=== PATIENT | female | born 1980 | race Caucasian/White ===

== ENCOUNTER 2018-03-08 18:16 | Outpatient (REF) | payer BC, SELFPAY ==
[2018-03-11 15:22] LABS: Chlamydia Result Negative; GC Result Negative; Specimen Description CERVIX
== END 2018-03-08 18:36 ==
LOC: LBN 18:16
PROVIDERS: PCP Nurse Practitioner; Visit Provider Nurse Practitioner Women's Health
DX: Z11.3 Encounter for screening for infections with a predominantly sexual mode of transmission (principal)
CPT/HCPCS: 87491; 87591

== ENCOUNTER 2018-06-03 09:12 | Outpatient (REF) | payer BC, SELFPAY ==
--- NOTE | 2018-06-03 08:45 | PAPFT_PTH ---
PATIENT: Amelia Antunez LOC: [facility] U#:[id number] AGE/SX: 38/F ROOM: RE06/03/[address]: ALEXANDREA Blanchard : 1980 BED: DIS: 06/03/2018 SPEC #: [id number] RECD: 06/03/18 12:54 STATUS: ASHLEY RECheli #: [id number] [place]: 06/03/18 08:[address]: Beatrice Kumra DEPT: [facility] Cytology RECD BY: Valeria Mancia ENTERED: 06/03/18 12:54 SP TYPE: PAPFT TOSHIA DR: Helena Benítez APRN Tissues: 1 - CX/ENDOCX FOR PAP SMEARS Procedures: PAP THIN PREP/UVM Screening HPV DNA PROBE Comments: [id number]
== END 2018-06-03 09:32 ==
LOC: LBN 09:12
PROVIDERS: PCP Nurse Practitioner; Visit Provider Nurse Practitioner Family
DX: Z12.4 Encounter for screening for malignant neoplasm of cervix (principal); Z11.51 Encounter for screening for human papillomavirus (HPV)
CPT/HCPCS: 88142; 87624

== ENCOUNTER 2018-06-06 11:51 | Outpatient (REF) | payer BC, SELFPAY | END 2018-06-06 12:11 | LOC: LBN 11:51 | PROVIDERS: PCP Nurse Practitioner; Visit Provider Nurse Practitioner | DX: B34.9 Viral infection, unspecified (principal) | CPT/HCPCS: 87449 ==

== ENCOUNTER 2018-09-14 11:19 | Emergency (ER) | payer BC, SELFPAY ==
[2018-09-14 11:40] VITALS: BP 122/78; PULSE 69; RESP 16; TEMP 36.7; O2SAT 98
--- NOTE | 2018-09-14 11:48 | W.ED.GENAD ---
Discharge Plan Disposition Patient Disposition: HOME Condition: Stable Discharge Details Chief Complaint: PsychEval Clinical Impression: Depression Primary Care Provider: Helena Benítez ED Provider: Pankaj Millard Home Meds and New Rx's Prescriptions: No Action Dexilant 60 mg capsule,biphase delayed releas 60 mg PO DAILY Qty: 90 RF: 3 rizatriptan [Maxalt] 10 mg tablet 10 mg PO ONCE Qty: 10 RF: 3 sertraline 20 mg/mL concentrate 100 mg PO DAILY Qty: 150 RF: 12 levothyroxine 200 mcg/mL solution 200 mcg PO DAILY Qty: 30 RF: 12 sucralfate 100 mg/mL suspension 10 ml PO QID Qty: 420 RF: 4 valacyclovir [Valtrex] 500 mg tablet See Patient Comments PO .COMPLEX RF: 0 Discharge Instructions Instructions: Depression (ED) Additional Instructions: take your medications as prescribed, you should follow up with your primary care provider and have your thyroid function studies retested once you are taking your levothyroxine every day if you feel your symptoms are worsening call [facility] or return to the emergency department Medical Decision Making 38 yo female with hx of depression, hypothyroidism, who comes in with chief complaint of si. She states her symptoms have increased significantly over the past 2 days, states her daughter recently tried to harm herself and yesterday the pt spanked her son and a teacher at school called [employer] which made her feel hopeless. This morning her found her with scissors and she was going to cut her wrist so he brought her here. She denies any ingestants to try and harm herself. She has no focal neuro deficits, no fevers, no neck stiffness, no findings to suggest underlying patient coordinator front desk infectino or endocrine abnormalities, will have mental health evaluate, medically cleared pt's tsh and free t 4 both low, states she hasn't been taking her levothyroxine for 2 weeks or so. Will give her a dose while she is here of her levothyroxine. Mental health eval pending mental health evaluated and will be d/c'd with outpatient f/u, patient and are in agreement with this plan and feel safe with this plan. She now denies si on my repeat exam. Advised f/u with pcp with regards to her treatment of her hypothyroidism and stressed importance of taking meds as prescribed Differential Diagnosis depression, si, hypothyroidism Lab Data Lab results reviewed: Yes I reviewed the patient's lab results. HPI General Mode of arrival: ambulatory. Date/Time Provider Initiated Documentation: 09/14/18 11:30. Limitations to Documentation: no limitations. Information obtained by: patient. History of Present Illness 38 year old F presents to the emergency department with the chief complaint of depressed, described as severe, Patient started experiencing this day(s) (2) and it has been constant. No relieving factors improve symptom(s), Patient did receive the following treatments prior to arrival, none Related Data Home Medications Medication Instructions Recorded Confirmed dexlansoprazole 60 mg 60 mg PO DAILY #90 cap 04/10/18 09/14/18 capsule,biphase delayed release rizatriptan 10 mg tablet 10 mg PO ONCE #10 tab 04/10/18 09/14/18 valacyclovir 500 mg tablet See Rx Instructions PO .COMPLEX 04/15/18 09/14/18 tab sucralfate 100 mg/mL oral 10 ml PO QID #420 ml 06/26/18 09/14/18 suspension levothyroxine 200 mcg/mL oral 200 mcg PO DAILY #30 ml 08/07/18 09/14/18 solution sertraline 20 mg/mL oral 100 mg PO DAILY #150 ml 08/07/18 09/14/18 concentrate Previous Rx's Medication Instructions Recorded dexlansoprazole 60 mg 60 mg PO DAILY #90 cap 04/10/18 capsule,biphase delayed release rizatriptan 10 mg tablet 10 mg PO ONCE #10 tab 04/10/18 sucralfate 100 mg/mL oral 10 ml PO QID #420 ml 06/26/18 suspension levothyroxine 200 mcg/mL oral 200 mcg PO DAILY #30 ml 08/07/18 solution sertraline 20 mg/mL oral 100 mg PO DAILY #150 ml 08/07/18 concentrate Allergies Allergy/AdvReac Type Severity Reaction Status Date / Time clindamycin Allergy Severe Body rash, Verified 09/14/18 11:43 intensence itching sumatriptan [From Imitrex] AdvReac Severe Psychosis Verified 09/14/18 11:43 codeine AdvReac Intermediate GI Verified 09/14/18 11:43 pain/distress General Stated Complaint: PsychEval TOBI: 2 Review of Systems Review of Systems All systems reviewed & are unremarkable except as noted in HPI and below Constitutional Denies chills, Denies fever(s) and Denies weakness Cardiovascular Denies chest pain and Denies dyspnea Respiratory Denies cough and Denies dyspnea Gastrointestinal Denies abdominal pain, Denies nausea and Denies vomiting Genitourinary Denies dysuria Musculoskeletal Denies joint swelling Integumentary/Breasts Denies rash Neurologic Denies weakness [facility] Medical History Depression Hypothyroidism Abdominal migraine, not intractable (Acute) Chronic tension-type headache, not intractable (Acute) Squamous cell carcinoma of lip (Acute) HSV (herpes simplex virus) infection (Chronic) Gastroesophageal reflux disease without esophagitis (Acute 05/03/17) Surgical History Bariatric surgery status (Chronic) History of tonsillectomy (Chronic) Cholecystectomy Gastric Bypass (05/25/14) Family History Mother Essential hypertension Asthma Depression COPD (chronic obstructive pulmonary disease) Father Essential hypertension Social History Smoking/Tobacco Use Status: Never Alcohol Intake: current Alcohol Intake frequency: 0-2 drinks per day Substance use type: does not use Adopted: No Foster care: No Household members: spouse and children Number of Children: 3 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 Pets and animals: Yes Pets and animals: cat(s) and dog(s) What type of physical activity do you participate in: walking and irregular exercise Seatbelt use: always Helmet use: No (NA) Drive intox or ride w/intox restaurant delivery 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: No Water heater temp set <120 deg: Yes Working smoke detector in home: Yes Fire extinguisher in home: Yes Carbon monox detector in home: No Do you feel safe in your relationship?: Yes Female Reproductive History Menstrual control method: progestin IUCD (inserted by Bao Millard NP [id number] EXP=07/2020) and condoms History History 3 Para 3 Hx # Term Pregnancies Multiple births Hx # Pregnancies Ectopic pregnancies AB induced Hx Number of Living Children AB spontaneous Exam Const General: no acute distress Orientation: alert HENMT Head: normal to inspection Ears: external ears normal General nose exam: external nose normal Mouth: moist mucous membranes Eyes General: appearance normal, both eyes and all related structures Neck Neck: normal visual inspection Resp Effort & Inspection: normal respiratory effort and able to speak in complete sentences Cardio Rate: regular rate Skin General skin exam: no rashes or lesions noted Neuro General: alert and oriented x3 Extrem General: normal to inspection Psych Appearance: grossly normal Course Vital Signs Temperature 36.7 C 09/14/18 11:40 Pulse 69 09/14/18 11:40 Respiratory Rate 16 09/14/18 11:40 Blood Pressure 122/78 09/14/18 11:40 Pulse Oximetry 98 09/14/18 11:40 Temperature 36.7 C 09/14/18 11:40 Temperature Source Skin 09/14/18 11:40 Pulse 69 09/14/18 11:40 Respiratory Rate 16 09/14/18 11:40 Respiratory Effort Non-Labored 09/14/18 11:40 Blood Pressure 122/78 09/14/18 11:40 Blood Pressure Position Sitting 09/14/18 11:40 Pulse Oximetry 98 09/14/18 11:40 Oxygen Delivery Method Room Air 09/14/18 11:40 Oxygen Flow Rate 0 09/14/18 11:40 Pain Level 0 09/14/18 11:40 Lab/Test Results Lab/Test Results: POC- Test(urine) Negative
[2018-09-14 11:49] LABS: Bilirubin Negative (Negative); Blood Trace-intact (Negative); Clarity Clear; Glucose Negative (Negative); Ketones 15 mg/dL (Negative); Leukocyte Esterase Negative (Negative); Nitrite Negative (Negative); Specific Gravity >= 1.030 (1.005-1.025); Urobilinogen 0.2 EU/dL (Up TO 0.2)
--- NOTE | 2018-09-14 11:51 | ED.GENADUL_ITS ---
Discharge Plan Disposition Patient Disposition: HOME Condition: Stable Discharge Details Chief Complaint: PsychEval Clinical Impression: Depression Primary Care Provider: Helena Benítez ED Provider: Pankaj Millard Home Meds and New Rx's Prescriptions: No Action Dexilant 60 mg capsule,biphase delayed releas 60 mg PO DAILY Qty: 90 RF: 3 rizatriptan [Maxalt] 10 mg tablet 10 mg PO ONCE Qty: 10 RF: 3 sertraline 20 mg/mL concentrate 100 mg PO DAILY Qty: 150 RF: 12 levothyroxine 200 mcg/mL solution 200 mcg PO DAILY Qty: 30 RF: 12 sucralfate 100 mg/mL suspension 10 ml PO QID Qty: 420 RF: 4 valacyclovir [Valtrex] 500 mg tablet See Patient Comments PO .COMPLEX RF: 0 Discharge Instructions Instructions: Depression (ED) Additional Instructions: take your medications as prescribed, you should follow up with your primary care provider and have your thyroid function studies retested once you are taking your levothyroxine every day if you feel your symptoms are worsening call [facility] or return to the emergency department Medical Decision Making 38 yo female with hx of depression, hypothyroidism, who comes in with chief complaint of si. She states her symptoms have increased significantly over the past 2 days, states her daughter recently tried to harm herself and yesterday the pt spanked her son and a teacher at school called [facility] which made her feel hopeless. This morning her found her with scissors and she was going to cut her wrist so he brought her here. She denies any ingestants to try and harm herself. She has no focal neuro deficits, no fevers, no neck stiffness, no findings to suggest underlying emery grinder infectino or endocrine abnormalities, will have mental health evaluate, medically cleared pt's tsh and free t 4 both low, states she hasn't been taking her levothyroxine for 2 weeks or so. Will give her a dose while she is here of her levothyroxine. Mental health eval pending mental health evaluated and will be d/c'd with outpatient f/u, patient and are in agreement with this plan and feel safe with this plan. She now denies si on my repeat exam. Advised f/u with pcp with regards to her treatment of her hypothyroidism and stressed importance of taking meds as prescribed Differential Diagnosis depression, si, hypothyroidism Lab Data Lab results reviewed: Yes I reviewed the patient's lab results. HPI General Mode of arrival: ambulatory . Date/Time Provider Initiated Documentation: 09/14/18 11:30 . Limitations to Documentation: no limitations . Information obtained by: patient . History of Present Illness 38 year old F presents to the emergency department with the chief complaint of depressed, described as severe, Patient started experiencing this day(s) (2) and it has been constant. No relieving factors improve symptom(s), Patient did receive the following treatments prior to arrival, none Related Data Home Medications Medication Instructions Recorded Confirmed dexlansoprazole 60 mg 60 mg PO DAILY #90 cap 04/10/18 09/14/18 capsule,biphase delayed release rizatriptan 10 mg tablet 10 mg PO ONCE #10 tab 04/10/18 09/14/18 valacyclovir 500 mg tablet See Rx Instructions PO .COMPLEX 04/15/18 09/14/18 tab sucralfate 100 mg/mL oral 10 ml PO QID #420 ml 06/26/18 09/14/18 suspension levothyroxine 200 mcg/mL oral 200 mcg PO DAILY #30 ml 08/07/18 09/14/18 solution sertraline 20 mg/mL oral 100 mg PO DAILY #150 ml 08/07/18 09/14/18 concentrate Previous Rx's Medication Instructions Recorded dexlansoprazole 60 mg 60 mg PO DAILY #90 cap 04/10/18 capsule,biphase delayed release rizatriptan 10 mg tablet 10 mg PO ONCE #10 tab 04/10/18 sucralfate 100 mg/mL oral 10 ml PO QID #420 ml 06/26/18 suspension levothyroxine 200 mcg/mL oral 200 mcg PO DAILY #30 ml 08/07/18 solution sertraline 20 mg/mL oral 100 mg PO DAILY #150 ml 08/07/18 concentrate Allergies Allergy/AdvReac Type Severity Reaction Status Date / Time clindamycin Allergy Severe Body rash, Verified 09/14/18 11:43 intensence itching sumatriptan [From Imitrex] AdvReac Severe Psychosis Verified 09/14/18 11:43 codeine AdvReac Intermediate GI Verified 09/14/18 11:43 pain/distress General Stated Complaint: PsychEval TOBI: 2 Review of Systems Review of Systems All systems reviewed & are unremarkable except as noted in HPI and below Constitutional Denies chills, Denies fever(s) and Denies weakness Cardiovascular Denies chest pain and Denies dyspnea Respiratory Denies cough and Denies dyspnea Gastrointestinal Denies abdominal pain, Denies nausea and Denies vomiting Genitourinary Denies dysuria Musculoskeletal Denies joint swelling Integumentary/Breasts Denies rash Neurologic Denies weakness [facility] Medical History Depression Hypothyroidism Abdominal migraine, not intractable (Acute) Chronic tension-type headache, not intractable (Acute) Squamous cell carcinoma of lip (Acute) HSV (herpes simplex virus) infection (Chronic) Gastroesophageal reflux disease without esophagitis (Acute 05/03/17) Surgical History Bariatric surgery status (Chronic) History of tonsillectomy (Chronic) Cholecystectomy Gastric Bypass (05/25/14) Family History Mother Essential hypertension Asthma Depression COPD (chronic obstructive pulmonary disease) Father Essential hypertension Social History Smoking/Tobacco Use Status: Never Alcohol Intake: current Alcohol Intake frequency: 0-2 drinks per day Substance use type: does not use Adopted: No Foster care: No Household members: spouse and children Number of Children: 3 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 Pets and animals: Yes Pets and animals: cat(s) and dog(s) What type of physical activity do you participate in: walking and irregular exercise Seatbelt use: always Helmet use: No (NA) Drive intox or ride w/intox cdl 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: No Water heater temp set <120 deg: Yes Working smoke detector in home: Yes Fire extinguisher in home: Yes Carbon monox detector in home: No Do you feel safe in your relationship?: Yes Female Reproductive History Menstrual control method: progestin IUCD (inserted by Bao Millard NP RPS=[id number] EXP=07/2020) and condoms History History 3 Para 3 Hx # Term Pregnancies Multiple births Hx # Pregnancies Ectopic pregnancies AB induced Hx Number of Living Children AB spontaneous Exam Const General: no acute distress Orientation: alert HENMT Head: normal to inspection Ears: external ears normal General nose exam: external nose normal Mouth: moist mucous membranes Eyes General: appearance normal, both eyes and all related structures Neck Neck: normal visual inspection Resp Effort & Inspection: normal respiratory effort and able to speak in complete sentences Cardio Rate: regular rate Skin General skin exam: no rashes or lesions noted Neuro General: alert and oriented x3 Extrem General: normal to inspection Psych Appearance: grossly normal Course Vital Signs Temperature 36.7 C 09/14/18 11:40 Pulse 69 09/14/18 11:40 Respiratory Rate 16 09/14/18 11:40 Blood Pressure 122/78 09/14/18 11:40 Pulse Oximetry 98 09/14/18 11:40 Temperature 36.7 C 09/14/18 11:40 Temperature Source Skin 09/14/18 11:40 Pulse 69 09/14/18 11:40 Respiratory Rate 16 09/14/18 11:40 Respiratory Effort Non-Labored 09/14/18 11:40 Blood Pressure 122/78 09/14/18 11:40 Blood Pressure Position Sitting 09/14/18 11:40 Pulse Oximetry 98 09/14/18 11:40 Oxygen Delivery Method Room Air 09/14/18 11:40 Oxygen Flow Rate 0 09/14/18 11:40 Pain Level 0 09/14/18 11:40 Lab/Test Results Lab/Test Results: POC- Test(urine) Negative
[2018-09-14 12:02] LABS: Epithelial Cells Rare HPF (Negative); Other Cells Negative (Negative); RBC 0-2 (0-2); WBC 0-2 HPF (0-5)
[2018-09-14 12:03] LABS: Bacteria Negative HPF (Negative); C & S Indicated? No; Casts Negative LPF (Negative); Crystals Negative HPF (Negative); Mucus Trace (Negative)
[2018-09-14 12:04] LABS: *AMPHETAMINES SCREEN URINE Negative (Negative); *BARBITURATES SCREEN URINE Negative (Negative); *BENZODIAZEPINES SCREEN URINE Negative (Negative); Cannabinoids THC Negative (Negative); Cocaine Screen,Urine Negative (Negative); METHADONE URINE SCREEN Negative (Negative); OPIATES URINE SCREEN Negative (Negative)
[2018-09-14 12:06] LABS: Tricyclic Antidepressants Negative (Negative)
[2018-09-14 12:06] LABS: Abs Immature Grans 0.01 k/cumm (0.0-0.09); Absolute Basophil Count 0.02 k/cumm (0.0-0.2); Absolute Eosinophil Count 0.16 k/cumm (0.0-0.7); Absolute Lymphocyte Count 1.64 k/cumm (1.2-3.4); Absolute Monocyte Count 0.64 k/cumm (0.11-0.7); Absolute Neutrophil Count 5.17 k/cumm (1.2-6.7); Basophils % 0.3; Eosinophils % 2.1; HCT 38.8 % (36.0-46.0); HGB 13.2 g/dL (12.0-15.5); Immature Grans % 0.1; Lymphocytes % 21.5; Mean Corpuscular Hemoglobin 30.1 pg (27.0-33.0); Mean Corpuscular Volume 88.4 fL (80-95); Mean Platelet Volume 9.2 fL (8.0-11.0); Monocytes % 8.4; Neutrophils % 67.6; Platelet Count 217 x1000/uL (130-400); RBC 4.39 m/cumm (4.00-5.20); RBC Distribution Width 12.9 % (11.7-14.6); White Blood Cell Count 7.64 k/cumm (4.4-10.8)
[2018-09-14 12:26] LABS: Acetaminophen < 2 ug/mL (10-30)
[2018-09-14 12:31] LABS: ALT 19 U/L (12-78); AST 15 U/L (15-37); Albumin 4.2 g/dL (3.4-5.0); Alkaline Phosphatase 18 U/L (46-116); Anion Gap 12.6 mmol/L (3-11); BUN 14 mg/dL (7-18); Bilirubin, Total 0.7 mg/dL (0.2-1.0); CO2 21.4 mmol/L (21.0-32.0); CREATININE 0.99 mg/dL (0.55-1.02); Calcium 8.8 mg/dL (8.5-10.1); Chloride 103 mmol/L (98-107); Glucose 82 mg/dL (70-100); Potassium 3.9 mmol/L (3.5-5.1); Sodium 137 mmol/L (136-145); TSH (W/Ref FT4) 0.01 uIU/mL (0.358-3.74); Total Protein 7.4 g/dL (6.4-8.2)
[2018-09-14 12:33] LABS: ETHANOL BLOOD < 3.0 mg/dL (<3)
[2018-09-14 13:05] LABS: FREE T4 0.71 ng/dL (0.76-1.46)
[2018-09-14] MEDS: Levothyroxine 200 MCG TAB PO (13:22)
[2018-09-14 15:22] VITALS: BP 118/71; PULSE 70; RESP 16; TEMP 36.7; O2SAT 99
--- NOTE | 2018-09-14 15:46 | PDOC.MHCN ---
Mental Health Crisis Note Presenting Issue How did you arrive at the ED and why did you come: Ariel arrived to the ED via her after she grabbed for a knife this morning and had been making threats to commit suicide since last evening. Precipitating Factors Ariel states that she feels her family would be better off without her and that she feels like a horrible mother. She is feeling hopeless and helpless right now and is unsure what to do. Disposition BEHAVIOR: Cooperative and engaged. EYE CONTACT: Fair to good MOOD: Amelia presents as depressed and overwhelmed. AFFECT: Tearful, hopeless, and helpless APPETITE: Amelia reports her appetite has been fine. SLEEP(trouble falling/staying asleep: Amelia reports that her sleep has been poor. Plan We attempted a stay at the Care bed but Amelia is in the middle of her exams for school and needs access to internet to complete. She would not have this here so instead we did a safety plan home. This plan was reviewed by the attending physician before Amelia, her and myself signed. A copy was left for the ED to scan into Amelia's chart. Provisional Diagnosis Depressive d/o unspecified with SI. Signature Clinician's Name/Title: Lisa Saini MS, Emergency Services Clinician
== END 2018-09-14 15:21 | disposition home or self-care (01) ==
PROVIDERS: Emergency Provider Emergency Medicine; PCP Nurse Practitioner
DX: F32.9 Major depressive disorder, single episode, unspecified (principal); R45.851 Suicidal ideations
CPT/HCPCS: 36415; 80053; 80307; 81025; 99285; 80320; 80329; 81003; 81015; 84439; 84443; 85025; 99284

== ENCOUNTER 2019-05-02 01:14 | Outpatient (CLI) | payer BC, SELFPAY ==
[2019-05-02 09:27] LABS: Calculated LDL 178 mg/dL; Cholesterol 254 mg/dL (<200); HDL Cholesterol 64 mg/dL (40-60); Triglyceride 62 mg/dL (<150)
[2019-05-02 09:58] LABS: FREE T4 0.94 ng/dL (0.76-1.46)
== END 2019-05-02 01:34 ==
PROVIDERS: PCP Nurse Practitioner; Visit Provider Nurse Practitioner
DX: E78.00 Pure hypercholesterolemia, unspecified (principal); R63.5 Abnormal weight gain
CPT/HCPCS: 36415; 80061; 84439; 84443

== ENCOUNTER 2020-02-23 10:57 | Outpatient (CLI) | payer BC, SELFPAY ==
[2020-02-24 20:30] LABS: COVID-19 RT-PCR Result NEGATIVE (Negative)
== END 2020-02-23 11:17 ==
PROVIDERS: PCP Nurse Practitioner; Visit Provider Family Medicine
DX: R05 Cough (principal)
CPT/HCPCS: U0003

== ENCOUNTER 2020-02-23 13:27 | Outpatient (REF) | payer BC, SELFPAY | END 2020-02-23 13:47 | LOC: LBN 13:27 | PROVIDERS: PCP Nurse Practitioner; Visit Provider Family Medicine | DX: J02.9 Acute pharyngitis, unspecified (principal) | CPT/HCPCS: 87070 ==

== ENCOUNTER 2020-05-28 02:16 | Outpatient (CLI) | payer OTHER, BC, SELFPAY ==
[2020-05-28 07:46] LABS: HCT 37.5 % (36.0-46.0); HGB 12.1 g/dL (11.2-15.7); MCH 28.9 pg (27.0-33.0); MCHC 32.3 % (32.0-36.0); MCV 89.7 fL (80-95); MPV 9.5 fL (8.0-11.0); Platelet Count 245 10^3/uL (130-400); RBC 4.18 10^6/uL (3.93-5.22); RDW 12.4 % (11.7-14.6); RDW-SD 40.8 fL; WBC 5.95 10^3/uL (4.4-10.8)
[2020-05-28 08:54] LABS: ALT 22 U/L (14-59); AST 13 U/L (15-37); Albumin 4.1 g/dL (3.4-5.0); Alkaline Phosphatase 18 U/L (46-116); BUN 17 mg/dL (7-18); Bilirubin, Total 0.5 mg/dL (0.2-1.0); CREATININE 1.12 mg/dL (0.55-1.02); Calcium 8.9 mg/dL (8.5-10.1); Calculated LDL 196 mg/dL (<100); Chloride 103 mmol/L (98-107); Cholesterol 265 mg/dL (<200); Estimated GFR 53.88 (mL/min/1.73m2); Ferritin 12 ng/mL (8-252); Glucose 92 mg/dL (74-106); HDL Cholesterol 58 mg/dL (40-60); Potassium 4.3 mmol/L (3.5-5.1); Sodium 140 mmol/L (136-145); TSH (W/Ref FT4) 1.51 uIU/mL (0.36-3.74); Total Protein 6.9 g/dL (6.4-8.2); Triglyceride 56 mg/dL (<150)
== END 2020-05-28 02:36 ==
PROVIDERS: PCP Nurse Practitioner; Visit Provider Nurse Practitioner
DX: E03.9 Hypothyroidism, unspecified (principal); E78.5 Hyperlipidemia, unspecified; F32.9 Major depressive disorder, single episode, unspecified; Z98.84 Bariatric surgery status
CPT/HCPCS: 36415; 80053; 80061; 85027; 82728; 84443

== ENCOUNTER 2020-07-30 03:28 | Outpatient (CLI) | payer OTHER, BC, SELFPAY ==
[2020-07-30 18:12] LABS: Anion Gap 12.8 mmol/L (3-11); BUN 17 mg/dL (7-18); CO2 23.2 mmol/L (21.0-32.0); Calcium 9.6 mg/dL (8.5-10.1); Chloride 106 mmol/L (98-107); Glucose 88 mg/dL (74-106); Potassium 4.1 mmol/L (3.5-5.1); Sodium 142 mmol/L (136-145)
== END 2020-07-30 03:29 | disposition home or self-care (01) ==
LOC: LBO 03:28
PROVIDERS: PCP Nurse Practitioner; Visit Provider Nurse Practitioner
DX: R79.89 Other specified abnormal findings of blood chemistry (principal)
CPT/HCPCS: 36415; 80048; 80061

== ENCOUNTER 2020-12-17 03:57 | Outpatient (CLI) | payer OTHER, BC, SELFPAY ==
--- NOTE | 2020-12-17 06:45 | DI.MAMMO_ITS ---
Exam(s) MAMMO SCREENING EXAM: MAMMO SCREENING CLINICAL HISTORY: screening,z12.39 TECHNIQUE: Mammograms were interpreted according to the usual protocol including computer analysis w [employer] CAD system, tomosynthesis and C-view imaging. COMPARISON: FINDINGS: The breasts are heterogeneously dense. No dominant mass or clumped microcalcification is identified in either breast. The current examination is a baseline examination. IMPRESSION: No specific evidence of malignancy at this time. Routine screening examinations are suggested at yea rly intervals in this age group according to the ACR guidelines. BI-RADS Category 1 - Negative Breast Density - Category C - Heterogeneously dense
== END 2020-12-17 04:17 ==
PROVIDERS: PCP Nurse Practitioner; Visit Provider Nurse Practitioner
DX: Z12.31 Encounter for screening mammogram for malignant neoplasm of breast (principal)
CPT/HCPCS: 77063; 77067

== ENCOUNTER 2021-02-17 03:17 | Outpatient (CLI) | payer OTHER, BC, SELFPAY ==
[2021-02-17 17:56] LABS: FREE T4 1.01 ng/dL (0.76-1.46); TSH (W/Ref FT4) 6.04 uIU/mL (0.36-3.74)
[2021-02-18 17:06] LABS: T3,Free 3.2 pg/mL (2.8-5.3)
[2021-02-21 10:22] LABS: Hepatitis C Ab w Rflx HCV PCR Negative (Negative)
== END 2021-02-17 03:18 | disposition home or self-care (01) ==
LOC: LBO 03:18
PROVIDERS: PCP Nurse Practitioner; Visit Provider Nurse Practitioner
DX: E78.5 Hyperlipidemia, unspecified; E03.9 Hypothyroidism, unspecified; Z98.84 Bariatric surgery status; Z11.59 Encounter for screening for other viral diseases
CPT/HCPCS: 36415; 86803; 84439; 84443; 84481

== ENCOUNTER 2021-07-18 18:17 | Outpatient (REF) | payer OTHER, SELFPAY | END 2021-07-18 18:18 | disposition home or self-care (01) | LOC: LBN 18:17 | PROVIDERS: PCP Nurse Practitioner; Visit Provider Nurse Practitioner Women's Health | DX: R30.0 Dysuria (principal) | CPT/HCPCS: 87077; 87086; 87186 ==

== ENCOUNTER 2021-08-08 17:18 | Emergency (ER) | payer OTHER, SELFPAY ==
[2021-08-08 17:23] VITALS: BP 141/79; PULSE 79; RESP 16; TEMP 36.3; O2SAT 98
--- NOTE | 2021-08-08 17:38 | W.ED.GENAD ---
Discharge Plan Disposition Patient Disposition: HOME Condition: Stable Discharge Details Clinical Impression: Pyelonephritis Primary Care Provider: Helena Benítez ED Provider: Meron Medeiros Home Meds and New Rx's Prescriptions: New phenazopyridine [Pyridium] 200 mg tablet 200 mg PO TID PRN (Reason: pain) Qty: 6 0RF Continued Mirena 20 mcg/24 hours (6 yrs) 52 mg intrauterine device 1 device intrauterine ONCE 0RF Rx Instructions: as a single dose calcium carbonate [Tums] 300 mg (750 mg) tablet,chewable 300 mg PO QID PRN0RF sucralfate [Carafate] 100 mg/mL suspension 10 ml PO QACHS Qty: 1200 2RF clotrimazole-betamethasone 1-0.05 % cream 1 applic topical BID 10 Days Qty: 15 2RF cyclobenzaprine 10 mg tablet 10 mg PO HS PRN (Reason: muscle spasm) Qty: 30 6RF levothyroxine [Tirosint] 200 mcg capsule 200 mcg PO DAILY Qty: 90 3RF bupropion HCl [Wellbutrin XL] 150 mg tablet extended release 24 hr 150 mg PO QAM Qty: 90 1RF fluoxetine 40 mg capsule 40 mg PO DAILY Qty: 90 3RF valacyclovir [Valtrex] 500 mg tablet See Rx Instructions PO .COMPLEX 0RF Label Comments: take 2 gms and repeat 2 gms in 12 hrs for flare, take 500 mg daily for prophylaxis Pedro Luis Alvarez MD [facility] Rx Instructions: take 2 gms and repeat 2 gms in 12 hrs for flare, take 500 mg daily for prophylaxis Pedro Luis Alvarez MD [facility] dexlansoprazole [Dexilant] 60 mg capsule,biphase delayed releas 60 mg PO DAILY Qty: 90 3RF Discharge Instructions Instructions: Ciprofloxacin (By mouth), Phenazopyridine (By mouth), Ondansetron (By mouth), Urinary Tract Infection in Women (ED) Additional Instructions: Your labs and exam are most sent with a right-sided kidney infection. As we discussed, please encourage hydration. Please take the antibiotics as prescribed. Even if symptoms improve, please take the entire course. If you have any recurrence of your nausea or vomiting, you may use the Zofran as prescribed. Pyridium may be used as prescribed to help with any increased pain with urination. Please follow up with primary care in the next week for reevaluation. If you develop fevers/chills, increased pain, inability to stay hydrated or other new/worsening symptoms please seek care urgently once again. Referrals: Helena Benítez NP [Primary Care Provider] - Discharge Data Discharge Date/Time-TO BE ENTERED AT DEPARTURE: 08/08/21 20:05 Medical Decision Making Patient is a pleasant 41-year-old female presenting today with concerns for UTI. Patient was seen by [facility] on [facility]/18/[facility]21. At that time, she was diagnosed with a UTI, culture grew out E. coli that was pansensitive. She was treated with nitrofurantoin. She states that initially her symptoms seem to completely resolve. However, over recent days her symptoms have come back and have significantly increased. She states that she had multiple episodes of emesis yesterday. Had nausea throughout the course the day today. Has had continued dysuria, increased frequency, urgency, hematuria. States that prior to these most recent episodes her last UTI was approximately 20 years ago. States that she has not had any fevers. No change in bowel habits. Denies any vaginal discharge. On exam, patient appears uncomfortable. She does have right-sided CVA tenderness. Epigastric discomfort, patient reports that she has bad acid reflux have that her nausea and vomiting seem to have worsened this yesterday and today. She also has some tenderness over the bladder but is otherwise nontender with no peritoneal findings or guarding. She does report that when she had her UTI several years ago she did end up with pyelonephritis as well. She denies hx of nephrolithiasis. With persistent vomiting, nausea and systemic symptoms, I do feel that labs to evaluate for kidney function would be appropriate. Plan to hydrate the patient, give antiemetic as well as Pyridium to help with discomfort. Reevaluated the patient. She reports feeling some degree of improvement. Labs reviewed with patient. WBC 12.9. Lactate WNL. CMP without signficant abnormality. Kidney functio stable. She and I discussed treatment options. Her initial urine was pansensitive. Sill treat for longer course. Will begin on Ciprofloxacin for pyelonephritis. She and I discussed the risks associated with this medication. Will give zofran for nausea, pyridium for sympatomatic management. Strict return precautions discussed. Encouraged hydration. Advised close f/u with PCP. All of her questions and concerns were addressed, she is in agreement with this plan. HPI General Date/Time Provider Initiated Documentation: 08/08/21 17:30. Limitations to Documentation: no limitations. Information obtained by: patient and RN notes reviewed. History of Present Illness 41 year old F presents to the emergency department with the chief complaint of dysurea, increased frequency/urgeency, right sided back pain, described as severe and similar to prior episodes (reports 20 years ago had pyelonephritis), with intensity rated at 6. Quality is described as burning, and is localized to the abdomen and genitals. Patient reports radiation to back. Patient started experiencing this week(s) and it has been intermittent. improves with Medication improves symptom(s), (had initally improved with abx but since completing symptoms have returned) No exacerbating factors reported . Patient notes fever/chills and nausea/vomiting; denies chest pain, cough, headaches and rash. Patient did receive the following treatments prior to arrival, none Related Data Home Medications Medication Instructions Recorded Confirmed valacyclovir 500 mg tablet See Rx Instructions PO .COMPLEX 04/15/18 02/15/21 (Valtrex) tab levonorgestrel 20 mcg/24 hours (7 1 device INTRAUTERINE ONCE 05/05/20 02/15/21 yrs) 52 mg intrauterine device (Mirena) cyclobenzaprine 10 mg tablet 10 mg PO HS PRN #30 tab 05/31/20 02/15/21 calcium carbonate 300 mg (750 mg) 300 mg PO QID PRN 08/24/20 02/15/21 chewable tablet (Tums) sucralfate 100 mg/mL oral 10 ml PO QACHS #1200 ml 08/24/20 02/15/21 suspension (Carafate) Tirosint 200 mcg capsule 200 mcg PO DAILY #90 cap NS 02/15/21 02/15/21 (levothyroxine) clotrimazole-betamethasone 1 1 applic TOPICAL BID 10 Days #15 g 03/18/21 03/18/21 %-0.05 % topical cream dexlansoprazole 60 mg 60 mg PO DAILY #90 cap 04/26/21 capsule,biphase delayed release (Dexilant) bupropion HCl 150 mg 24 hr tablet, 150 mg PO QAM #90 tab 06/08/21 06/08/21 extended release (Wellbutrin XL) fluoxetine 40 mg capsule 40 mg PO DAILY #90 cap 06/08/21 06/08/21 phenazopyridine 200 mg tablet 200 mg PO TID PRN #6 tab 08/08/21 (Pyridium) Previous Rx's Medication Instructions Recorded cyclobenzaprine 10 mg tablet 10 mg PO HS PRN #30 tab 05/31/20 sucralfate 100 mg/mL oral 10 ml PO QACHS #1200 ml 08/24/20 suspension (Carafate) Tirosint 200 mcg capsule 200 mcg PO DAILY #90 cap NS 02/15/21 (levothyroxine) clotrimazole-betamethasone 1 1 applic TOPICAL BID 10 Days #15 g 03/18/21 %-0.05 % topical cream dexlansoprazole 60 mg 60 mg PO DAILY #90 cap 04/26/21 capsule,biphase delayed release (Dexilant) bupropion HCl 150 mg 24 hr tablet, 150 mg PO QAM #90 tab 06/08/21 extended release (Wellbutrin XL) fluoxetine 40 mg capsule 40 mg PO DAILY #90 cap 06/08/21 phenazopyridine 200 mg tablet 200 mg PO TID PRN #6 tab 08/08/21 (Pyridium) Allergies Allergy/AdvReac Type Severity Reaction Status Date / Time clindamycin Allergy Severe Body rash, Verified 08/08/21 17:28 intensence itching sumatriptan [From Imitrex] AdvReac Severe Psychosis Verified 08/08/21 17:28 codeine AdvReac Intermediate GI Verified 08/08/21 17:28 pain/distress General Stated Complaint: Urinary TOBI: 3 Review of Systems Constitutional Constitutional: Reports as per HPI, Denies chills, Reports fever(s) and Reports poor appetite Cardiovascular Cardiovascular: Denies chest pain Respiratory Respiratory: Denies cough Gastrointestinal Gastrointestinal: Denies abdominal pain, Denies change in bowel habits, Reports nausea and Reports vomiting Genitourinary Genitourinary: Reports as per HPI Musculoskeletal Musculoskeletal: Reports as per HPI and Reports back pain Integumentary/Breasts Skin/Breast: Reports as per HPI and Denies rash PFSH All Active Problems (Updated 08/08/21 @ 19:53 by ALVIN Berger) Pyelonephritis (Acute) Encounter for HCV screening test for low risk patient (Acute) Right foot pain (Acute) Epigastric pain (Acute) Tensor tympani spasm disorder, left (Acute) BCC (basal cell carcinoma), chest (Acute 05/19/20) left midline Hyperlipidemia (Acute) Blood chemistry abnormality (Acute) Vaginal yeast infection (Acute) Pelvic pressure in female (Acute) Bariatric surgery status (Acute) Shoulder pain, right (Acute) Generalized anxiety disorder (Acute) Anxiety (Chronic) Routine general medical examination at a health care facility (Acute) Hyperlipidemia (Acute) Bacterial vaginosis (Acute 11/09/15) Candidal vulvovaginitis (Acute 11/09/15) Lentigines (Acute) Actinic keratitis (Acute) Esophageal erosions (Chronic) by EGD 07/19/18 [place] [facility] Abdominal migraine, not intractable (Acute) Chronic tension-type headache, not intractable (Acute) Squamous cell carcinoma of lip (Acute) HSV (herpes simplex virus) infection (Chronic) Bariatric surgery status (Chronic) Gastroesophageal reflux disease without esophagitis (Acute 05/03/17) Surgical History (Updated 05/03/20 @ 11:19 by Helena Benítez NP) Cholecystectomy Gastric Bypass (05/25/14) PT HAD SURGERY IN [facility]. WAS FOLLOWED BY PA-S AT [facility]. OF TODAY PT HAS NEW PCP AT [facility], Molly CRUZ History of tonsillectomy Family History (Updated 06/08/21 @ 08:59 by Pallavi De Los Santos RN) Mother Essential hypertension Asthma COPD Depression COPD (chronic obstructive pulmonary disease) Anxiety Alcohol abuse Father Essential hypertension Social History (Updated 06/08/21 @ 08:58 by Pallavi De Los Santos RN) Smoking/Tobacco Use Status: Never Second Hand Exposure: No Smoking risk assessment performed?: Yes Alcohol Intake: current Alcohol Intake frequency: a few times a month Drug use: Never Substance use type: does not use Adopted: No Caregiver/Support person: No Foster care: No Household members: spouse and children Housing: house Number of Children: 3 number of grandchildren: 0 Communication Needs: None Education Level: college Do you need help understanding health information?: Never current occupation: [employer] Pets and animals: Yes Pets and animals: cat(s) and dog(s) Sexually active: Yes Do you think of yourself as: straight/heterosexual Current gender identity: female What is your relationship status?: How often do you talk on the phone with friends or family?: once per week How often do you get together with friends or relatives?: once per week Do you belong to any clubs or organized social groups?: no Panel score (0-1 are the most socially isolated patients): 1 What type of physical activity do you participate in: none Special romeo needs: No Seatbelt use: always Helmet use: Yes (NA) Drive intox or ride w/intox meals on wheels driver: No Water heater temp set <120 deg: Yes Working smoke detector in home: Yes Fire extinguisher in home: Yes Carbon monox detector in home: No Do you feel safe at home: Yes Do you feel safe in your relationship?: Yes Female Reproductive History Menstrual control method: progestin IUCD (inserted by Bao Millard NP RRS=[id number] EXP=07/2020) and condoms History History 3 Para 3 Hx # Term Pregnancies Multiple births Hx # Pregnancies Ectopic pregnancies AB induced Hx Number of Living Children AB spontaneous Exam Const General: cooperative, healthy appearing, uncomfortable, no acute distress, well developed and well groomed Nutritional Appearance: average body habitus and well nourished Orientation: alert and awake Resp Effort & Inspection: normal respiratory effort and no respiratory distress Auscultation: clear to auscultation bilaterally, no rales, no rhonchi and no wheezes Cardio Rate: regular rate Rhythm: regular rhythm Heart Sounds: S1 normal and S2 normal GI Inspection: normal to inspection Palpation: soft, no hepatosplenomegaly, not firm, no guarding, not rigid and nontender Back/Spine/Pelvis Back: CVA tenderness (right side) Skin General skin exam: no rashes or lesions noted Trauma: no lacerations or abrasions Neuro General: patient alert and patient awake Cognition: normal cognition Speech: speech normal Gait: normal gait Psych Appearance: grossly normal and well kempt Mental Status: mental status grossly normal Speech and Movement: speech and movement normal Course Vital Signs Vital signs: Vital Signs Temperature 36.3 C L 08/08/21 17:23 Pulse 79 08/08/21 17:23 Respiratory Rate 16 08/08/21 17:23 Blood Pressure 141/79 H 08/08/21 17:23 Pulse Oximetry 98 08/08/21 17:23 Temperature 36.3 C L 08/08/21 17:23 Temperature Source Skin 08/08/21 17:23 Pulse 79 08/08/21 17:23 Respiratory Rate 16 08/08/21 17:23 Respiratory Effort 08/08/21 17:30 Blood Pressure 141/79 H 08/08/21 17:23 Pulse Oximetry 98 08/08/21 17:23 Oxygen Delivery Method Room Air 08/08/21 17:23 Oxygen Flow Rate 0 08/08/21 17:23 Pain Level 6 08/08/21 17:31
[2021-08-08 17:44] LABS: Bilirubin Small (Negative); Blood Large (Negative); Glucose Negative (Negative); Ketones Trace mg/dL (Negative); Leukocyte Esterase Small (Negative); Nitrite Negative (Negative); Specific Gravity >= 1.030 (1.005-1.025); Urobilinogen 0.2 EU/dL (Up TO 0.2)
[2021-08-08 17:45] LABS: Clarity Cloudy (Clear)
[2021-08-08 17:50] LABS: RBC >50 HPF (0-2); WBC >50 HPF (0-5)
[2021-08-08 17:51] LABS: Bacteria Moderate HPF (Negative); C & S Indicated? Yes; Casts Negative LPF (Negative); Crystals Negative HPF (Negative); Epithelial Cells Few HPF (Negative); Mucus Negative (Negative)
[2021-08-08 18:55] LABS: Abs Immature Grans 0.03 10^3/uL (0.0-0.06); Absolute Monocyte Count 0.86 10^3/uL (0.1-0.8); Basophils % 0.2; Eosinophils % 0.8; HCT 37.8 % (36.0-46.0); HGB 12.1 g/dL (11.2-15.7); Immature Grans % 0.2; MCH 26.7 pg (27.0-33.0); MCV 83.3 fL (80-95); MPV 9.3 fL (8.0-11.0); Monocytes % 6.6; Neutrophils % 80.2; Nucleated RBC 0 %; Platelet Count 344 10^3/uL (130-400); RBC 4.54 10^6/uL (3.93-5.22); RDW 13.5 % (11.7-14.6); RDW-SD 41.4 fL; WBC 12.96 10^3/uL (4.4-10.8)
[2021-08-08 18:57] LABS: Absolute Basophil Count 0.03 10^3/uL (0.0-0.2); Absolute Lymphocyte Count 1.56 10^3/uL (1.2-3.4); Absolute Neutrophil Count 10.39 10^3/uL (1.2-6.7)
[2021-08-08 19:13] LABS: ALT 29 U/L (14-59); AST 14 U/L (15-37); Albumin 4.2 g/dL (3.4-5.0); Alkaline Phosphatase 25 U/L (46-116); Anion Gap 10.7 mmol/L (3-11); BUN 13 mg/dL (7-18); Bilirubin, Total 0.5 mg/dL (0.2-1.0); CO2 23.3 mmol/L (21.0-32.0); CREATININE 0.9 mg/dL (0.55-1.02); Calcium 9.5 mg/dL (8.5-10.1); Chloride 104 mmol/L (98-107); Glucose 101 mg/dL (74-106); Potassium 4.1 mmol/L (3.5-5.1); Sodium 138 mmol/L (136-145); Total Protein 7.5 g/dL (6.4-8.2)
[2021-08-08] MEDS: Phenazopyridine 200 MG TAB PO (19:35)
[2021-08-08] MEDS: Normal Saline 1,000 ML 1000 ML IV (19:35)
[2021-08-08] MEDS: Ondansetron 4 MG/2 ML VIAL IVP (19:35)
[2021-08-08 19:37] VITALS: BP 112/56; PULSE 70; RESP 18; O2SAT 98
== END 2021-08-08 20:05 | disposition home or self-care (01) ==
PROVIDERS: Emergency Provider Physician Assistant; PCP Nurse Practitioner
DX: N10 Acute pyelonephritis (principal); R11.2 Nausea with vomiting, unspecified; R50.9 Fever, unspecified
CPT/HCPCS: 36415; 80053; 81025; 96361; 96374; 99284; 81003; 81015; 83605; 85025; 87086; 99283; J2405

== ENCOUNTER 2021-08-17 15:42 | Outpatient (REF) | payer OTHER, SELFPAY | END 2021-08-17 15:43 | disposition home or self-care (01) | LOC: LBN 15:42 | PROVIDERS: PCP Nurse Practitioner; Referring Provider Nurse Practitioner; Visit Provider Nurse Practitioner | DX: R30.0 Dysuria (principal); R53.83 Other fatigue | CPT/HCPCS: 87086 ==

== ENCOUNTER 2021-08-22 13:45 | Outpatient (REF) | payer OTHER, SELFPAY ==
--- NOTE | 2021-08-22 13:15 | PAPFT_PTH ---
PATIENT: Amelia Antunez LOC: N U#:[id number] AGE/SX: 41/F ROOM: RE08/22/[address]: ALEXANDREA Blanchard : 1980 BED: DIS: 08/22/2021 SPEC #: [id number] RECD: 08/22/21 18:15 STATUS: ASHLEY RECheli #: [id number] [place]: 08/22/21 13:[address]: Beatrice Kumar DEPT: [facility] Cytology RECD BY: Valeria Mancia ENTERED: 08/22/21 18:16 SP TYPE: PAPFT TOSHIA DR: Helena Benítez APRN Tissues: 1 - CX/ENDOCX FOR PAP SMEARS Procedures: PAP THIN PREP/UVM Screening HPV DNA PROBE Comments: [id number]
== END 2021-08-22 13:46 | disposition home or self-care (01) ==
LOC: LBN 13:45
PROVIDERS: PCP Nurse Practitioner; Visit Provider Nurse Practitioner Family
DX: Z12.4 Encounter for screening for malignant neoplasm of cervix (principal); Z11.51 Encounter for screening for human papillomavirus (HPV)
CPT/HCPCS: 88142; 87624

== ENCOUNTER 2021-08-26 02:10 | Outpatient (CLI) | payer OTHER, SELFPAY ==
[2021-08-26 09:01] LABS: Total Iron Binding Capacity 392 ug/dL (250-450)
[2021-08-26 09:27] LABS: Calculated LDL 157 mg/dL (<100); Cholesterol 226 mg/dL (<200); Ferritin 8 ng/mL (8-252); HDL Cholesterol 56 mg/dL (40-60); TSH (W/Ref FT4) < 0.01 uIU/mL (0.36-3.74); Triglyceride 67 mg/dL (<150); Vitamin B12 298 pg/mL (193-986)
[2021-08-26 09:44] LABS: FREE T4 1.78 ng/dL (0.76-1.46)
[2021-08-29 06:25] LABS: Vitamin D 25 Total 30.7 ng/mL (30-100)
== END 2021-08-26 02:11 | disposition home or self-care (01) ==
LOC: LBO 02:11
PROVIDERS: PCP Nurse Practitioner; Visit Provider Nurse Practitioner
DX: I10 Essential (primary) hypertension (principal); R53.83 Other fatigue; E55.9 Vitamin D deficiency, unspecified; E66.1 Drug-induced obesity
CPT/HCPCS: 36415; 80061; 82306; 82607; 82728; 83550; 84439; 84443

== ENCOUNTER 2021-09-23 16:03 | Outpatient (REF) | payer OTHER, SELFPAY ==
[2021-09-26 14:08] LABS: Chlamydia Result Negative (Negative); GC Result Negative (Negative)
== END 2021-09-23 16:04 | disposition home or self-care (01) ==
LOC: LBN 16:03
PROVIDERS: Nurse Practitioner Family; PCP Nurse Practitioner; Visit Provider Nurse Practitioner Adult Health
DX: N89.8 Other specified noninflammatory disorders of vagina (principal); Z11.3 Encounter for screening for infections with a predominantly sexual mode of transmission
CPT/HCPCS: 87491; 87591; 87480; 87510; 87660

== ENCOUNTER → 2022-01-20 00:24 | Outpatient (CLI) | payer OTHER, SELFPAY ==
--- NOTE | 2022-01-20 07:30 | DI.RAD_ITS ---
Exam(s) XR FOOT RT COMPLETE EXAM: XR FOOT RT COMPLETE CLINICAL HISTORY: evaluate swelling, hematoma, bony path,pain, crush injury,m79.671,s97.81xa. TECHNIQUE: 2D digital imaging was performed of the right foot. Images were obtained. AP, oblique and lateral views were obtained. COMPARISON: No exams were available for comparison FINDINGS: BONES: No acute fracture is present. No bony destructive lesion is seen. JOINTS: No dislocation present. SOFT TISSUE: Normal. IMPRESSION: Unremarkable radiographs of the right foot. DATA REPOSITORY: RADIATION DOSE DELIVERED:
== END ==
PROVIDERS: PCP Nurse Practitioner; Visit Provider Student in an Organized Health Care Education/Training Program
DX: M79.671 Pain in right foot (principal)
CPT/HCPCS: 73630

== ENCOUNTER 2022-06-01 12:55 | Emergency (ER) | payer OTHER, SELFPAY ==
[2022-06-01] VITALS (18 sets, daily range): BP systolic 105–129; BP diastolic 46–112; PULSE 58–88; RESP 18–20; TEMP 36.6; O2SAT 100
--- NOTE | 2022-06-01 13:00 | RT.EKG_ITS ---
APPROVED REPORT Exam: Resting ECG Reason for Exam: chest pain Patient Location: E HR:85 bpm ECG Measurements Heart Rate 85 AXIS MN 132 P 73 QRSd 84 QRS 8 QT 393 T 34 QTc 468 Conclusion Sinus rhythm...normal P axis, V-rate 60- 99 Probable left atrial enlargement...P >50mS, <-0.10mV V1 Low voltage, precordial leads...precordial leads <1.0mV sinus rhythm normal axis, normal intervals, non ischemic
--- NOTE | 2022-06-01 13:19 | W.ED.GENAD ---
Discharge Plan Disposition Patient Disposition: Home Condition: Improving Discharge Details Chief Complaint: Chest Pain Clinical Impression: Chest pain Primary Care Provider: Helena Benítez ED Provider: Zain Cook Home Meds and New Rx's Prescriptions: No Action Mirena 20 mcg/24 hours (6 yrs) 52 mg intrauterine device 1 device intrauterine ONCE Rx Instructions: as a single dose calcium carbonate [Tums] 300 mg (750 mg) tablet,chewable 300 mg PO QID PRN fluconazole [Diflucan] 150 mg tablet 150 mg PO Q OTHER DAY Qty: 2 3RF clotrimazole-betamethasone 1-0.05 % cream 1 applic topical BID 10 Days Qty: 15 2RF fluoxetine 40 mg capsule 40 mg PO DAILY Qty: 90 3RF zolpidem 10 mg tablet 10 mg PO QHS PRN (Reason: sleep) Qty: 30 2RF cyclobenzaprine 10 mg tablet 10 mg PO HS PRN (Reason: muscle spasm) Qty: 30 6RF levothyroxine [Tirosint] 200 mcg capsule 200 mcg PO DAILY Qty: 90 3RF valacyclovir [Valtrex] 500 mg tablet See Rx Instructions PO .COMPLEX Label Comments: take 2 gms and repeat 2 gms in 12 hrs for flare, take 500 mg daily for prophylaxis Pedro Luis Alvarez MD [facility] Rx Instructions: take 2 gms and repeat 2 gms in 12 hrs for flare, take 500 mg daily for prophylaxis Pedro Luis Alvarez MD [facility] dexlansoprazole [Dexilant] 60 mg capsule,biphase delayed releas 60 mg PO DAILY Qty: 90 3RF famotidine [Pepcid AC] PO BID Label Comments: 11/29/21 GI note (dose not known) bupropion HCl 300 mg tablet extended release 24 hr 300 mg PO QAM Qty: 90 3RF triamcinolone acetonide 0.1 % cream 1 applic topical BID 7 Days Qty: 30 0RF Rx Instructions: Apply to rash on face Discharge Instructions Instructions: Chest Pain (ED) Additional Instructions: Please follow-up with your primary care physician. Please return to the emergency department for any worsening symptoms. Medical Decision Making 42-year-old female history of anxiety, GERD, hyperlipidemia presents with anterior chest pain rating to her right shoulder while at work today, feeling anxious and as if she was going to pass out as well as anterior chest pain and shortness of breath. No history of coronary disease, no history of thromboembolic disease. EKG normal sinus rhythm normal axis no ischemic changes; normoxic nontachycardic. Psychosocial stressors at home and at work. Although patient is low risk from cardiovascular standpoint must consider ACS. Given history of chest pain shortness of breath and near syncope will obtain D-dimer to assess for thromboembolic disease versus GERD versus gastritis versus panic attack versus costochondritis or musculoskeletal discomfort. Will obtain labs imaging light fluid anxiolysis close reassessment. 17: 00 patient resting comfortably asymptomatic, feeling much better. 2 troponins negative. Imaging and EKG unremarkable. Consider musculoskeletal tension versus chest congestion versus pleurisy versus anxiety. Home care instructions or return precautions given. HPI General Date/Time Provider Initiated Documentation: 06/01/22 13:13. 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 No history of coronary artery disease no history of thromboembolic disease in herself or in the family. Patient is not on exogenous estrogen. Travel or surgery. Does have a history of anxiety and endorses psychosocial stressors at home and at work. Does feel safe where she lives. Related Data Home Medications Medication Instructions Recorded Confirmed valacyclovir 500 mg tablet See Rx Instructions PO .COMPLEX 04/15/18 06/01/22 (Valtrex) levonorgestrel 20 mcg/24 hours (8 1 device intrauterine ONCE 05/05/20 06/01/22 yrs) 52 mg intrauterine device (Mirena) cyclobenzaprine 10 mg tablet 10 mg PO HS PRN muscle spasm #30 05/31/20 06/01/22 tabs calcium carbonate 300 mg (750 mg) 300 mg PO QID PRN 08/24/20 06/01/22 chewable tablet (Tums) Tirosint 200 mcg capsule 200 mcg PO DAILY #90 caps 02/15/21 06/01/22 (levothyroxine) dexlansoprazole 60 mg 60 mg PO DAILY #90 caps 04/26/21 06/01/22 capsule,biphase delayed release (Dexilant) clotrimazole-betamethasone 1 1 applic topical BID 10 days #15 08/17/21 06/01/22 %-0.05 % topical cream grams fluconazole 150 mg tablet 150 mg PO Q OTHER DAY #2 tabs 08/17/21 06/01/22 (Diflucan) fluoxetine 40 mg capsule 40 mg PO DAILY #90 caps 11/23/21 06/01/22 famotidine [Pepcid AC] PO BID 12/22/21 02/14/22 zolpidem 10 mg tablet 10 mg PO QHS PRN sleep #30 tabs 02/14/22 06/01/22 bupropion HCl 300 mg 24 hr tablet, 300 mg PO QAM #90 tabs 02/20/22 06/01/22 extended release triamcinolone acetonide 0.1 % 1 applic topical BID 7 days #30 05/29/22 06/01/22 topical cream grams Previous Rx's Medication Instructions Recorded cyclobenzaprine 10 mg tablet 10 mg PO HS PRN muscle spasm #30 05/31/20 tabs Tirosint 200 mcg capsule 200 mcg PO DAILY #90 caps 02/15/21 (levothyroxine) dexlansoprazole 60 mg 60 mg PO DAILY #90 caps 04/26/21 capsule,biphase delayed release (Dexilant) clotrimazole-betamethasone 1 1 applic topical BID 10 days #15 08/17/21 %-0.05 % topical cream grams fluconazole 150 mg tablet 150 mg PO Q OTHER DAY #2 tabs 08/17/21 (Diflucan) fluoxetine 40 mg capsule 40 mg PO DAILY #90 caps 11/23/21 zolpidem 10 mg tablet 10 mg PO QHS PRN sleep #30 tabs 02/14/22 bupropion HCl 300 mg 24 hr tablet, 300 mg PO QAM #90 tabs 02/20/22 extended release triamcinolone acetonide 0.1 % 1 applic topical BID 7 days #30 05/29/22 topical cream grams Allergies Allergy/AdvReac Type Severity Reaction Status Date / Time clindamycin Allergy Severe Body rash, Verified 06/01/22 13:01 intensence itching sumatriptan [From Imitrex] AdvReac Severe Psychosis Verified 06/01/22 13:01 codeine AdvReac Intermediate GI Verified 06/01/22 13:01 pain/distress General Stated Complaint: Chest Pain TOBI: 2 Review of Systems Narrative: Review of Systems Constitutional: negative Eyes: negative ENT: negative Cardiovascular: Chest pain Respiratory: Shortness of breath Gastrointestinal: negative : negative Musculoskeletal: negative Skin: negative Neurologic: negative Psych: negative PFSH All Active Problems (Updated 06/01/22 @ 17:02 by Zain Cook MD) Chest pain (Acute) Foot swelling (Acute) Crush injury of right foot (Acute) Foot pain, right (Acute) Anxiety and depression (Chronic) Dyspepsia (Acute) [place] [facility] [place] [facility] [place] Vaginal adenosis (Acute) Encounter for HCV screening test for low risk patient (Acute) Right foot pain (Acute) Epigastric pain (Acute) Tensor tympani spasm disorder, left (Acute) BCC (basal cell carcinoma), chest (Acute 05/19/20) left midline Hyperlipidemia (Acute) Blood chemistry abnormality (Acute) Vaginal yeast infection (Acute) Pelvic pressure in female (Acute) Bariatric surgery status (Acute) Shoulder pain, right (Acute) Generalized anxiety disorder (Acute) Anxiety (Chronic) Routine general medical examination at a health care facility (Acute) Hyperlipidemia (Acute) Candidal vulvovaginitis (Acute 11/09/15) Lentigines (Acute) Actinic keratitis (Acute) Esophageal erosions (Chronic) by EGD 07/19/18 [facility] Abdominal migraine, not intractable (Acute) Chronic tension-type headache, not intractable (Acute) Squamous cell carcinoma of lip (Acute) HSV (herpes simplex virus) infection (Chronic) Bariatric surgery status (Chronic) Gastroesophageal reflux disease without esophagitis (Acute 05/03/17) Medical History (Updated 06/01/22 @ 17:02 by Zain Cook MD) Abnormal findings on esophagogastroduodenoscopy (EGD) (~10/26/21) Bacterial vaginosis (11/09/15) History of squamous cell carcinoma [facility] [place] Surgical History Cholecystectomy Gastric Bypass (05/25/14) PT HAD SURGERY IN [facility]. WAS FOLLOWED BY PA-S AT [facility]. OF TODAY PT HAS NEW PCP AT [facility], Molly CRUZ History of tonsillectomy Family History Mother Essential hypertension Asthma COPD Depression COPD (chronic obstructive pulmonary disease) Anxiety Alcohol abuse Father Essential hypertension Social History Smoking/Tobacco Use Status: Never Second Hand Exposure: No Smoking risk assessment performed?: Yes Alcohol Intake: current Alcohol Intake frequency: a few times a month Drug use: Never Substance use type: does not use Adopted: No Caregiver/Support person: No Foster care: No Household members: spouse and children Housing: house Number of Children: 3 number of grandchildren: 0 Communication Needs: None Education Level: college Do you need help understanding health information?: Never current occupation: [employer] Pets and animals: Yes Pets and animals: cat(s) and dog(s) Sexually active: Yes Do you think of yourself as: straight/heterosexual Current gender identity: female What is your relationship status?: How often do you talk on the phone with friends or family?: once per week How often do you get together with friends or relatives?: once per week Do you belong to any clubs or organized social groups?: no Panel score (0-1 are the most socially isolated patients): 1 What type of physical activity do you participate in: none Special romeo needs: No Seatbelt use: always Helmet use: Yes (NA) Drive intox or ride w/intox bobcat driver/labor: No Water heater temp set <120 deg: Yes Working smoke detector in home: Yes Fire extinguisher in home: Yes Carbon monox detector in home: No Do you feel safe at home: Yes Do you feel safe in your relationship?: Yes Female Reproductive History Menstrual control method: progestin IUCD and condoms History History 3 Para 3 Hx # Term Pregnancies Multiple births Hx # Pregnancies Ectopic pregnancies AB induced Hx Number of Living Children AB spontaneous Exam Narrative Exam Narrative: Physical Examination General: alert, awake, cooperative, appears anxious HEENT: normocephalic, atraumatic; PERRL, EOM intact, conjunctiva normal; no nasal discharge; moist mucous membranes, oral and pharyngeal mucosa normal, tolerating secretions Neck: supple, trachea midline; full ROM Chest: normal to inspection Respiratory: normal respiratory effort, speaking in full sentences, clear to auscultation, no wheezing, rales or rhonchi Cardiac: regular rate, regular rhythm, S1S2 intact, no murmurs rubs or gallops GI: abdomen soft, non-tender, non-distended; no palpable mass or hepatosplenomegaly Skin: no lesions, rashes or trauma appreciated Neuro: AAOx3, normal speech, moving all extremities Psych: Appears anxious Course Vital Signs Vital signs: Vital Signs Temperature 36.6 C 06/01/22 12:58 Pulse 88 06/01/22 12:58 Respiratory Rate 18 06/01/22 12:58 Blood Pressure 129/87 06/01/22 12:58 Pulse Oximetry 100 06/01/22 12:58 Temperature 36.6 C 06/01/22 12:58 Pulse 88 06/01/22 12:58 Respiratory Rate 18 06/01/22 12:58 Respiratory Effort 06/01/22 13:00 Blood Pressure 129/87 06/01/22 12:58 Blood Pressure Position Sitting 06/01/22 12:58 Pulse Oximetry 100 06/01/22 12:58 Oxygen Delivery Method Room Air 06/01/22 12:58 Oxygen Flow Rate 0 06/01/22 12:58 Pain Level 7 06/01/22 12:58 PAWSS Have you Been Recently Intoxicated or Drunk Within the Last 30 days?: No Have you Ever Experienced Previous Episodes of Alcohol Withdrawal?: No Have you ever Experienced Withdrawal Seizures?: No Have you ever Experienced Delirium Tremens(DT)s?: No Have you ever undergone Alcohol Rehabilitation Treatment (i.e, inpt ot outpatient treatment programs)?: No Have you ever Experienced Blackouts?: No Have you ever Combined Alcohol with other Downers within the last 90 days?: No Have you ever Combined Alcohol with any other Substance of Abuse during the last 90 days?: No Result: 0
[2022-06-01] MEDS: LORazepam 2 MG/ML VIAL 0.5 MG IVP (13:34)
[2022-06-01] MEDS: Normal Saline 1,000 ML 1000 ML IV (13:34)
[2022-06-01] MEDS: Ondansetron 4 MG/2 ML VIAL IVP (13:35)
[2022-06-01 13:43] LABS: Abs Immature Grans 0.02 10^3/uL (0.0-0.06); Absolute Basophil Count 0.06 10^3/uL (0.0-0.2); Absolute Lymphocyte Count 3.41 10^3/uL (1.2-3.4); Absolute Monocyte Count 0.53 10^3/uL (0.1-0.8); Absolute Neutrophil Count 3.57 10^3/uL (1.2-6.7); Basophils % 0.8; Eosinophils % 1.3; HCT 36.2 % (36.0-46.0); HGB 11.6 g/dL (11.2-15.7); Immature Grans % 0.3; Lymphocytes % 44.3; MCV 84 fL (80-95); MPV 9.4 fL (8.0-11.0); Monocytes % 6.9; Neutrophils % 46.4; Platelet Count 330 10^3/uL (130-400); RBC 4.29 10^6/uL (3.93-5.22); RDW 15.2 % (11.7-14.6); RDW-SD 46.5 fL; WBC 7.69 10^3/uL (4.4-10.8)
--- NOTE | 2022-06-01 13:58 | DI.RAD_ITS ---
Exam(s) XR PORTABLE CHEST AP EXAM: XR PORTABLE CHEST AP CLINICAL HISTORY: cp sob. TECHNIQUE: 2D digital imaging was performed. COMPARISON: No exams were available for comparison FINDINGS: Single AP portable view. Heart size is upper normal. The mediastinum is not widened. Lungs are clear. No infiltrates nor obvious pleural effusions. IMPRESSION: No acute pulmonary findings on this single AP portable view of the chest. Incidentally noted are bilateral C7 cervical ribs. DATA REPOSITORY: RADIATION DOSE DELIVERED:
[2022-06-01 14:13] LABS: ALT 17 U/L (14-59); AST 15 U/L (15-37); Albumin 4.2 g/dL (3.4-5.0); Alkaline Phosphatase 30 U/L (46-116); Anion Gap 11.4 mmol/L (3-11); BUN 15 mg/dL (7-18); Bilirubin, Total 0.3 mg/dL (0.2-1.0); CO2 23.6 mmol/L (21.0-32.0); Calcium 9.2 mg/dL (8.5-10.1); Chloride 105 mmol/L (98-107); Estimated GFR 72.13 (mL/min/1.73m2); Glucose 101 mg/dL (74-106); NT-proBNP 58 pg/mL (<300); Potassium 3.8 mmol/L (3.5-5.1); Sodium 140 mmol/L (136-145); TSH (W/Ref FT4) 2.11 uIU/mL (0.36-3.74); Total Protein 8.2 g/dL (6.4-8.2); Troponin I < 50 ng/L (<or=60)
[2022-06-01 14:19] LABS: D-Dimer 445 ng/mlFEU (<500)
[2022-06-01 14:42] LABS: Bilirubin Negative (Negative); Blood Negative (Negative); Clarity Clear (Clear); Glucose Negative (Negative); Ketones Negative (Negative); Leukocyte Esterase Negative (Negative); Nitrite Negative (Negative); Urobilinogen 0.2 EU/dL (Up TO 0.2); pH 5.5 (5-8)
[2022-06-01 15:03] LABS: *AMPHETAMINES SCREEN URINE Negative (Negative); *BARBITURATES SCREEN URINE Negative (Negative); *BENZODIAZEPINES SCREEN URINE Negative (Negative); Cannabinoids THC Negative (Negative); Cocaine Screen,Urine Negative (Negative); METHADONE URINE SCREEN Negative (Negative); OPIATES URINE SCREEN Negative (Negative)
[2022-06-01 15:06] LABS: Tricyclic Antidepressants Negative (Negative)
[2022-06-01] MEDS: Dexamethasone 10 MG/ML VIAL IVP (15:53)
[2022-06-01 16:53] LABS: Troponin I < 50 ng/L (<or=60)
== END 2022-06-01 17:18 | disposition home or self-care (01) ==
PROVIDERS: Emergency Provider Emergency Medicine; PCP Nurse Practitioner
DX: R07.89 Other chest pain (principal); M25.511 Pain in right shoulder; R06.02 Shortness of breath
CPT/HCPCS: 36415; 80053; 80307; 81025; 93005; 96361; 96374; 96375; 99284; 71045; 81003; 83880; 84443; 84484; 85025; 85379; 93010; 99285; J1100; J2060; J2405

== ENCOUNTER 2022-06-29 11:23 | Outpatient (REF) | payer OTHER, SELFPAY ==
[2022-06-29 16:42] LABS: COVID-19 PCR Negative (Negative); Influenza A PCR Negative (Negative); Influenza B PCR Negative (Negative); RSV PCR Negative (Negative)
[2022-06-29 17:06] LABS: Source Nasopharynx
== END 2022-06-29 11:24 | disposition home or self-care (01) ==
LOC: LBN 11:23
PROVIDERS: PCP Nurse Practitioner; Referring Provider Nurse Practitioner; Visit Provider Nurse Practitioner
DX: J02.9 Acute pharyngitis, unspecified (principal); R51.9 Headache, unspecified; M79.18 Myalgia, other site; Z20.822 Contact with and (suspected) exposure to COVID-19
CPT/HCPCS: 87077; 87637; 87070

== ENCOUNTER 2022-09-14 15:11 | Outpatient (REF) | payer OTHER, SELFPAY | END 2022-09-14 15:12 | disposition home or self-care (01) | LOC: LBN 15:11 | PROVIDERS: PCP Nurse Practitioner; Visit Provider Obstetrics & Gynecology | DX: N89.8 Other specified noninflammatory disorders of vagina (principal); N39.3 Stress incontinence (female) (male) | CPT/HCPCS: 87480; 87510; 87660 ==

== ENCOUNTER 2022-10-17 19:00 | Outpatient (CLI) | payer OTHER, SELFPAY ==
[2022-10-17 17:09] LABS: Abs Immature Grans 0.02 10^3/uL (0.0-0.06); Absolute Basophil Count 0.04 10^3/uL (0.0-0.2); Absolute Monocyte Count 0.57 10^3/uL (0.1-0.8); Absolute Neutrophil Count 3.02 10^3/uL (1.2-6.7); Basophils % 0.6; Eosinophils % 1.5; HCT 32.6 % (36.0-46.0); Immature Grans % 0.3; Lymphocytes % 44.4; MCH 25.2 pg (27.0-33.0); MCHC 30.7 % (32.0-36.0); MCV 82 fL (80-95); MPV 8.8 fL (8.0-11.0); Monocytes % 8.4; Neutrophils % 44.8; Platelet Count 330 10^3/uL (130-400); RBC 3.97 10^6/uL (3.93-5.22); RDW 15.5 % (11.7-14.6); RDW-SD 47.1 fL; WBC 6.75 10^3/uL (4.4-10.8)
[2022-10-17 18:13] LABS: Anion Gap 7.6 mmol/L (3-11); BUN 15 mg/dL (7-18); CO2 26.4 mmol/L (21.0-32.0); CREATININE 0.9 mg/dL (0.55-1.02); Calcium 9.1 mg/dL (8.5-10.1); Chloride 103 mmol/L (98-107); Estimated GFR 81.86 (mL/min/1.73m2); Glucose 97 mg/dL (74-106); Potassium 3.8 mmol/L (3.5-5.1); Sodium 137 mmol/L (136-145)
[2022-10-17 19:33] LABS: Lab Add On Test DONE
[2022-10-17 20:33] LABS: Ferritin 6 ng/mL (8-252)
== END 2022-10-17 19:01 | disposition home or self-care (01) ==
LOC: LBO 19:00
PROVIDERS: Student in an Organized Health Care Education/Training Program; PCP Nurse Practitioner; Visit Provider Nurse Practitioner
DX: K92.2 Gastrointestinal hemorrhage, unspecified (principal); D64.9 Anemia, unspecified
CPT/HCPCS: 36415; 80048; 82728; 83540; 83550; 85025

== ENCOUNTER 2023-01-30 03:27 | Outpatient (CLI) | payer OTHER, SELFPAY ==
[2023-01-30 12:54] LABS: Abs Immature Grans 0.03 10^3/uL (0.0-0.06); Absolute Basophil Count 0.08 10^3/uL (0.0-0.2); Absolute Eosinophil Count 0.09 10^3/uL (0.0-0.7); Absolute Lymphocyte Count 2.88 10^3/uL (1.2-3.4); Absolute Neutrophil Count 5.08 10^3/uL (1.2-6.7); Basophils % 0.9; Eosinophils % 1.1; HCT 35.2 % (36.0-46.0); Immature Grans % 0.4; Lymphocytes % 33.6; MCH 25.1 pg (27.0-33.0); MCHC 31.3 % (32.0-36.0); MCV 80 fL (80-95); MPV 9.4 fL (8.0-11.0); Monocytes % 4.7; Neutrophils % 59.3; Platelet Count 353 10^3/uL (130-400); RBC 4.38 10^6/uL (3.93-5.22); RDW-SD 46.8 fL; WBC 8.56 10^3/uL (4.4-10.8)
[2023-01-30 13:10] LABS: Hemoglobin A1C 5.6 % (<5.7)
[2023-01-30 13:44] LABS: Ferritin 8 ng/mL (8-252); Folate 11.2 ng/mL (8.6-20.0); Vitamin B12 329 pg/mL (193-986)
[2023-01-30 13:49] LABS: Iron 77 ug/dL (50-170); Total Iron Binding Capacity 503 ug/dL (250-450); Transferrin Sat 15 % (15-50)
[2023-01-30 14:12] LABS: Vitamin D 25 Total 30.7 ng/mL (30-100)
[2023-01-31 19:15] LABS: Parathyroid Hormone,Intact 34 pg/mL (19-88)
[2023-02-03 12:55] LABS: Thiamine (Vitamin B1), WB 109 nmol/L (70-180)
== END 2023-01-30 03:28 | disposition home or self-care (01) ==
PROVIDERS: PCP Nurse Practitioner; Visit Provider Surgery
DX: Z98.84 Bariatric surgery status (principal)
CPT/HCPCS: 36415; 82306; 82607; 82728; 82746; 83036; 83540; 83550; 83970; 84425; 85025

== ENCOUNTER 2023-05-30 15:58 | Outpatient (REF) | payer OTHER, SELFPAY | END 2023-05-30 15:59 | disposition home or self-care (01) | LOC: LBN 15:58 | PROVIDERS: PCP Nurse Practitioner; Visit Provider Obstetrics & Gynecology | DX: N94.89 Other specified conditions associated with female genital organs and menstrual cycle (principal); N89.8 Other specified noninflammatory disorders of vagina | CPT/HCPCS: 87480; 87510; 87660 ==

== ENCOUNTER 2023-06-18 07:53 | Emergency (ER) | payer OTHER, SELFPAY ==
[2023-06-18 07:55] VITALS: BP 99/79; PULSE 85; RESP 16; TEMP 36.6; O2SAT 98
--- NOTE | 2023-06-18 08:00 | DI.CT_ITS ---
Exam(s) CT LUMBAR SPINE SI JOINTS WO EXAM: CT LUMBAR SPINE SI JOINTS WO CLINICAL HISTORY: fall, Coccyx/tailbone trauma. TECHNIQUE: Imaging Protocol: Axial computed tomography images with coronal and sagittal reformatted images were created and reviewed COMPARISON: No exams were available for comparison FINDINGS: Bones: There is a subtle nondisplaced fracture on the right side of the inferior sacrum just above t he coccyx level.. No overlying skin laceration or radiopaque foreign body. No other fractures ident ified. No compression fractures. No listhesis. No pars defects. No obvious disc herniations nor central spinal canal stenosis. No obvious foraminal stenosis. No fa cet arthropathy. No transverse process fractures. PARASPINAL SOFT TISSUES: Incidentally noted is an IUD in the uterus. Appears to be in satisfactory p osition. IMPRESSION: 1. Nondisplaced lower sacral fracture. Discussed with ER provider. RADIATION DOSE DELIVERED: 717.85mGy.cm Total DLP DATA REPOSITORY: All CT scans at this facility are submitted to the National Radiology Data Registry (NRDR) Dose Index Registry (DIR) with the [employer] ([employer]). RADIATION OPTIMIZATION: All CT scans at this facility use at least one of these dose optimization te chniques: automated exposure control; mA and/or kV adjustment per patient size (includes targeted exa ms where dose is matched to clinical indication); or iterative reconstruction.
[2023-06-18] MEDS: Acetaminophen 325 MG TAB 650 MG PO (08:19)
[2023-06-18] MEDS: Lidocaine 5% Patch 1 PATCH TP (08:19)
--- NOTE | 2023-06-18 09:14 | ED.GENADUL_ITS ---
HPI General Mode of arrival: ambulatory . Date/Time Provider Initiated Documentation: 06/18/23 08:03 . Limitations to Documentation: no limitations . Information obtained by: patient and RN notes reviewed . History of Present Illness 43 year old F presents to the emergency department with the chief complaint of Fall, tailbone pain, described as moderate and severe, Patient started experiencing this day(s) (1) and it has been constant. No relieving factors improve symptom(s), Movement worsens symptoms . Patient notes no other symptoms.. Patient did receive the following treatments prior to arrival, none Related Data Home Medications Medication Instructions Recorded Confirmed valacyclovir 500 mg tablet See Rx Instructions PO .COMPLEX 04/15/18 06/18/23 (Valtrex) levonorgestrel 21 mcg/24 hours (8 1 device intrauterine ONCE 05/05/20 06/18/23 yrs) 52 mg intrauterine device (Mirena) clotrimazole-betamethasone 1 1 applic topical BID vaginal itch 06/08/22 06/18/23 %-0.05 % topical cream 10 days #15 grams lorazepam 0.5 mg tablet 0.5 mg PO DAILY PRN anxiety #30 10/18/22 06/18/23 tabs Tirosint 200 mcg capsule 200 mcg PO DAILY #90 caps 12/27/22 06/18/23 (levothyroxine) fluoxetine 40 mg capsule 40 mg PO DAILY #90 caps 12/27/22 06/18/23 zolpidem 10 mg tablet 10 mg PO QHS PRN sleep #90 tabs 12/27/22 06/18/23 calcium [calcium citrate] PO BID 03/19/23 05/30/23 iron, carbonyl [Iron Chews] PO DAILY 03/19/23 05/30/23 multivitamin 2 tab PO DAILY 03/19/23 06/18/23 vitamin B complex (B 1 tab PO DAILY 03/19/23 06/18/23 Complex-Vitamin B12 tablet) bupropion HCl 300 mg 24 hr tablet, 300 mg PO QAM #90 tabs 05/16/23 06/18/23 extended release (Wellbutrin XL) gnuznzfnje-qloqokwrliubt-vkypcvyt 1 cap PO Q8H PRN pain #10 caps 05/16/23 06/18/23 50 mg-300 mg-40 mg capsule (Fioricet) metronidazole 0.75 % (37.5 mg/5 1 appful vaginal DAILY 5 days #70 05/30/23 06/18/23 gram) vaginal gel grams diclofenac sodium 3 % topical gel 1 applic topical BID PRN pain #100 06/18/23 grams lidocaine 5 % topical patch 1 patch topical DAILY PRN pain #15 06/18/23 ea Previous Rx's Medication Instructions Recorded clotrimazole-betamethasone 1 1 applic topical BID vaginal itch 06/08/22 %-0.05 % topical cream 10 days #15 grams lorazepam 0.5 mg tablet 0.5 mg PO DAILY PRN anxiety #30 10/18/22 tabs Tirosint 200 mcg capsule 200 mcg PO DAILY #90 caps 12/27/22 (levothyroxine) fluoxetine 40 mg capsule 40 mg PO DAILY #90 caps 12/27/22 zolpidem 10 mg tablet 10 mg PO QHS PRN sleep #90 tabs 12/27/22 bupropion HCl 300 mg 24 hr tablet, 300 mg PO QAM #90 tabs 05/16/23 extended release (Wellbutrin XL) sgbgbnxrdg-kqfqoqwolyiwm-oxftvpkw 1 cap PO Q8H PRN pain #10 caps 05/16/23 50 mg-300 mg-40 mg capsule (Fioricet) metronidazole 0.75 % (37.5 mg/5 1 appful vaginal DAILY 5 days #70 05/30/23 gram) vaginal gel grams diclofenac sodium 3 % topical gel 1 applic topical BID PRN pain #100 06/18/23 grams lidocaine 5 % topical patch 1 patch topical DAILY PRN pain #15 06/18/23 ea Allergies Allergy/AdvReac Type Severity Reaction Status Date / Time clindamycin Allergy Severe Body rash, Verified 06/18/23 07:58 intensence itching sumatriptan [From Imitrex] AdvReac Severe Psychosis Verified 06/18/23 07:58 codeine AdvReac Intermediate GI Verified 06/18/23 07:58 pain/distress General Stated Complaint: Nk/Back Pain TOBI: 4 Review of Systems Cardiovascular Cardiovascular: Denies chest pain Respiratory Respiratory: Denies cough Gastrointestinal Gastrointestinal: Denies abdominal pain, Denies change in bowel habits, Denies diarrhea, Denies nausea and Denies vomiting Genitourinary Genitourinary: Denies urinary incontinence Musculoskeletal Musculoskeletal: Reports as per HPI and Reports back pain Neurologic Neurologic: Denies sensory deficit Exam Const General: cooperative, no acute distress and not ill appearing Orientation: alert, awake and oriented x3 HENMT Mouth: moist mucous membranes Resp Effort & Inspection: normal respiratory effort, able to speak in complete sentences and no respiratory distress Cardio Rate: regular rate Rhythm: regular rhythm Back/Spine/Pelvis Thoracic/Lumbar Spine: No thoracic spinal tenderness and No lumbar spinal tenderness Pelvis: no buttock ecchymosis and buttock tenderness bilaterally Sacrum: no ecchymosis, no erythema, no swelling and tenderness midline Coccyx: no swelling and tenderness Skin General skin exam: no rashes or lesions noted Neuro General: patient alert, patient awake, patient oriented x3, moves all extremities and no focal motor deficits Sensory Exam: no sensory deficits noted Course Vital Signs Vital signs: Vital Signs Temperature 36.6 C 06/18/23 07:55 Pulse 85 06/18/23 07:55 Respiratory Rate 16 06/18/23 07:55 Blood Pressure 99/79 L 06/18/23 07:55 Pulse Oximetry 98 06/18/23 07:55 Temperature 36.6 C 06/18/23 07:55 Temperature Source Skin 06/18/23 07:55 Pulse 85 06/18/23 07:55 Respiratory Rate 16 06/18/23 07:55 Respiratory Effort Normal, Non-Labored 06/18/23 08:33 Blood Pressure 99/79 L 06/18/23 07:55 Blood Pressure Position Standing 06/18/23 07:55 Pulse Oximetry 98 06/18/23 07:55 Oxygen Delivery Method Room Air 06/18/23 07:55 Oxygen Flow Rate 0 06/18/23 07:55 Pain Level 7 06/18/23 07:55 Lab/Test Results Lab/Test Results: POC- Test(urine) Negative Medical Decision Making Patient presenting to the emergency department for chief complaint of fall with low back/tailbone pain. Patient denies any other injury or trauma, stated slip and fall on ice, significant pain overnight. Exam shows significant tenderness to the lower sacrum and coccyx. No ecchymosis or swelling is noted. Full range of motion of lower extremities no sensory deficit otherwise noncontributory exam. Will plan on performing radiological imaging as I suspect acute fracture. Will give nonnarcotic pain medication pending results due to patient driving herself to the emergency department. Review of radiological imaging and radiologist interpretation shows a nondisplaced lower sacral fracture with no other worrisome findings noted. Will give patient limited supply of narcotic otherwise discussed standard course of healing along with return and follow-up precautions. After discussion of diagnosis and plan of care patient has no further needs, questions, or concerns and states clear understanding to return to the emergency department for any worsening symptoms. This documentation was generated using Phone Warrior dictation system, please disregard any oddities of phrase or misspellings. Imaging Data Radiologic Study: Imaging: CT Scan Radiologist's impression: Exam(s) CT LUMBAR SPINE SI JOINTS WO EXAM: CT LUMBAR SPINE SI JOINTS WO CLINICAL HISTORY: fall, Coccyx/tailbone trauma. TECHNIQUE: Imaging Protocol: Axial computed tomography images with coronal and sagittal reformatted images were created and reviewed COMPARISON: No exams were available for comparison FINDINGS: Bones: There is a subtle nondisplaced fracture on the right side of the inferior sacrum just above the coccyx level.. No overlying skin laceration or radiopaque foreign body. No other fractures identified. No compression fractures. No listhesis. No pars defects. No obvious disc herniations nor central spinal canal stenosis. No obvious foraminal stenosis. No facet arthropathy. No transverse process fractures. PARASPINAL SOFT TISSUES: Incidentally noted is an IUD in the uterus. Appears to be in satisfactory position. IMPRESSION: 1. Nondisplaced lower sacral fracture. Quality:SDOH Health Related Social Needs: No Data to Display PFSH All Active Problems Sacral fracture, closed (Acute) Gastro-esophageal reflux disease with esophagitis, without bleeding (Acute) 12/14/22 GI 01/11/23 F/U GI Internal hemorrhoids (Acute) Abdominal migraine, not intractable (Acute) Chronic tension-type headache, not intractable (Acute) Actinic keratitis (Acute) Lentigines (Acute) Generalized anxiety disorder (Acute) Shoulder pain, right (Acute) BCC (basal cell carcinoma), chest (Acute 05/19/20) left midline Tensor tympani spasm disorder, left (Acute) Heartburn (Acute ~08/2022) 08/16/22 GI -esophageal manometry procedure done. 09/05/22 f/u GI GI bleed (Chronic) per task -- will see JV 6/ Anemia (Chronic) per task -- will see JV 6/7 Medical History ERNESTO (stress urinary incontinence, female) Fibroid, uterine 3cm fundal fibroid incidental finding on exam September 2022 History of squamous cell carcinoma [facility] [place] 08/29/21 On lip Dyspepsia 08/24/21 [facility] [place] 10/26/21 [facility] UGI Hyperlipidemia Esophageal erosions by EGD 07/19/18 [place] [facility] HSV (herpes simplex virus) infection Hypothyroidism Surgical History S/P repair of paraesophageal hernia Done [place] [facility] [place]/20/2023 Status post gastroplasty Done [place] [facility] History of repair of hiatal hernia (~02/2023) History of Shefali-en-Y gastric bypass (~02/19/23) History of esophagogastroduodenoscopy (EGD) (~01/05/23) 01/05/23- pre-op dx: gerd s/p sleeve gastrectomy. procedure: EGD, with dilation gastric/duodenal strictures H/O colonoscopy (~2010) H/O endoscopy (~10/26/22) Status post laparoscopic sleeve gastrectomy (~2014) 2014 in [place] Was followed by PA at [facility] 01/11/23 F/U GI -evidence non-obstructing stricture of her sleeve History of tonsillectomy Cholecystectomy Family History Mother Essential hypertension Asthma COPD Depression COPD (chronic obstructive pulmonary disease) Anxiety Alcohol abuse Father Essential hypertension Social History Smoking/Tobacco Use Status: Never Second Hand Exposure: No Smoking risk assessment performed?: Yes Alcohol Intake: current Alcohol Intake frequency: a few times a month Drug use: Never Substance use type: does not use Adopted: No Caregiver/Support person: No Foster care: No Household members: spouse and children Housing: house Number of Children: 3 number of grandchildren: 0 Communication Needs: None Education Level: college Do you need help understanding health information?: Never current occupation: [employer] Pets and animals: Yes Pets and animals: cat(s) and dog(s) Sexually active: Yes Do you think of yourself as: straight/heterosexual Current gender identity: female What is your relationship status?: How often do you talk on the phone with friends or family?: once per week How often do you get together with friends or relatives?: once per week Do you belong to any clubs or organized social groups?: no Panel score (0-1 are the most socially isolated patients): 1 What type of physical activity do you participate in: none Special romeo needs: No Seatbelt use: always Helmet use: Yes (NA) Drive intox or ride w/intox bottom hoop driver: No Water heater temp set <120 deg: Yes Working smoke detector in home: Yes Fire extinguisher in home: Yes Carbon monox detector in home: No Do you feel safe at home: Yes Do you feel safe in your relationship?: Yes Female Reproductive History Menstrual Age of Menarche: 16 Duration of menses: 3-5 days control method: progestin IUCD and condoms History History 3 Para 3 Hx # Term Pregnancies Multiple births Hx # Pregnancies Ectopic pregnancies AB induced Hx Number of Living Children AB spontaneous Past Pregnancies Del. Date GA/Weeks # Preg Succ Route Wgt Sex Labor Lgth Anesth esia Location [facility] 10/08/04 40 Yes vaginal 4337.477 g Female [place], [place] 01/18/07 40 Yes vaginal 4280.778 g Male [place], [place] 02/15/12 34 Yes vaginal 2409.709 g Male [facility] [place]charge Plan Disposition Patient Disposition: Home Discharge Details Clinical Impression: Sacral fracture, closed Primary Care Provider: Helena Benítez ED Provider: Gigi Palumbo Home Meds and New Rx's Prescriptions: New diclofenac sodium 3 % gel 1 applic topical BID PRN (Reason: pain) Qty: 100 1RF lidocaine 5 % adhesive patch,medicated 1 patch topical DAILY PRN (Reason: pain) Qty: 15 1RF Rx Instructions: leave on most painful area for 12 hrs Continued Mirena 20 mcg/24 hours (6 yrs) 52 mg intrauterine device 1 device intrauterine ONCE Rx Instructions: as a single dose metronidazole 0.75 % (37.5mg/5 gram) gel 1 appful vaginal DAILY 5 Days Qty: 70 1RF Rx Instructions: Use 1 applicator nightly x5 nights. Then use prn vaginal odor. clotrimazole-betamethasone 1-0.05 % cream 1 applic topical BID 10 Days Qty: 15 2RF valacyclovir [Valtrex] 500 mg tablet See Rx Instructions PO .COMPLEX Patient Comments: take 2 gms and repeat 2 gms in 12 hrs for flare, take 500 mg daily for prophylaxis Pedro Luis Alvarez MD [facility] Rx Instructions: take 2 gms and repeat 2 gms in 12 hrs for flare, take 500 mg daily for prophylaxis Pedro Luis Alvarez MD [facility] fluoxetine 40 mg capsule 40 mg PO DAILY Qty: 90 3RF levothyroxine [Tirosint] 200 mcg capsule 200 mcg PO DAILY Qty: 90 3RF iron, carbonyl [Iron Chews] PO DAILY vitamin B complex [B Complex-Vitamin B12] Tablet 1 tab PO DAILY multivitamin Tablet 2 tab PO DAILY calcium [calcium citrate] PO BID bupropion HCl [Wellbutrin XL] 300 mg tablet extended release 24 hr 300 mg PO QAM Qty: 90 3RF ukxordgvpn-qtjshqzxchyja-anqw [Fioricet] 50-300-40 mg capsule 1 cap PO Q8H PRN (Reason: pain) Qty: 10 0RF Held lorazepam 0.5 mg tablet 0.5 mg PO DAILY PRN (Reason: anxiety) Qty: 30 2RF Hold Instructions: Please hold lorazepam if you choose to use the narcotic supplied to you zolpidem 10 mg tablet 10 mg PO QHS PRN (Reason: sleep) Qty: 90 1RF Hold Instructions: Please use caution with this medication and the narcotic pain Discharge Instructions Instructions: Sacral Fracture (ED) Additional Instructions: You may perform activities as tolerated by pain and discomfort. You have been given a limited supply of narcotic and use for severe pain only. Otherwise you may continue to use wayc-zxi-epugeit acetaminophen along with prescribed pain gel and patch. Return to the emergency department immediately for any new or significant worsening of symptoms otherwise follow-up with your primary care provider as allan basurto for reassessment Stand Alone Forms: Work Release Referrals: Helena Benítez NP [Primary Care Provider] - (As needed for reassessment or if not improving) Discharge Data Discharge Date/Time-TO BE ENTERED AT DEPARTURE: 06/18/23 09:57
== END 2023-06-18 09:57 | disposition home or self-care (01) ==
PROVIDERS: Emergency Provider Nurse Practitioner Family; PCP Nurse Practitioner
DX: S32.10XA Unspecified fracture of sacrum, initial encounter for closed fracture (principal); Z98.84 Bariatric surgery status; W00.0XXA Fall on same level due to ice and snow, initial encounter; Y93.01 Activity, walking, marching and hiking
CPT/HCPCS: 81025; 99284; 72131; 99283

== ENCOUNTER 2023-11-13 03:24 | Outpatient (CLI) | payer OTHER, SELFPAY ==
[2023-11-13 16:36] LABS: Abs Immature Grans 0.02 10^3/uL (0.0-0.06); Absolute Basophil Count 0.04 10^3/uL (0.0-0.2); Absolute Eosinophil Count 0.09 10^3/uL (0.0-0.7); Absolute Monocyte Count 0.62 10^3/uL (0.1-0.8); Absolute Neutrophil Count 2.47 10^3/uL (1.2-6.7); Basophils % 0.7 %; Eosinophils % 1.5 %; HGB 10.3 g/dL (11.2-15.7); Immature Grans % 0.3 %; Lymphocytes % 45.5 %; MCHC 30.3 % (32.0-36.0); MCV 86 fL (80-95); MPV 9.1 fL (8.0-11.0); Monocytes % 10.4 %; Neutrophils % 41.6 %; Platelet Count 281 10^3/uL (130-400); RBC 3.96 10^6/uL (3.93-5.22); RDW-SD 47.6 fL; WBC 5.94 10^3/uL (4.4-10.8)
[2023-11-13 17:31] LABS: ALT 31 U/L (14-59); AST 17 U/L (15-37); Albumin 3.7 g/dL (3.4-5.0); Alkaline Phosphatase 28 U/L (46-116); Anion Gap 10.1 mmol/L (3-11); BUN 16 mg/dL (7-18); CO2 24.9 mmol/L (21.0-32.0); Calcium 8.6 mg/dL (8.5-10.1); Chloride 107 mmol/L (98-107); Estimated GFR 71.69 (mL/min/1.73m2); Ferritin 9 ng/mL (8-252); Glucose 99 mg/dL (74-106); Potassium 3.9 mmol/L (3.5-5.1); Sodium 142 mmol/L (136-145); TSH (W/Ref FT4) 14.09 uIU/mL (0.36-3.74); Total Protein 6.9 g/dL (6.4-8.2); Vitamin B12 215 pg/mL (193-986); Vitamin D 25 Total 32.4 ng/mL (30-100)
[2023-11-13 18:30] LABS: FREE T4 0.79 ng/dL (0.76-1.46)
[2023-11-14 17:55] LABS: Rheumatoid Factor <8.6 IU/mL (<12.0)
[2023-11-14 19:09] LABS: Parathyroid Hormone,Intact 57 pg/mL (19-88)
[2023-11-15 09:01] LABS: Cyclic Citrullinated Peptide <2.5 U/mL (<5.0)
[2023-11-15 10:07] LABS: Lyme Ab w Rflx to Lyme Confirm Negative (Negative)
[2023-11-16 14:13] LABS: ANA Interpretation Negative (Negative)
[2023-11-16 21:59] LABS: Anaplasma phagocytophilum Negative (Negative); B. miyamotoi PCR Negative (Negative); Babesia divergens/MO-1 Negative (Negative); Babesia duncani Negative (Negative); Babesia microti Negative (Negative); Ehrlichia chaffeensis Negative (Negative); Ehrlichia ewingii/canis Negative (Negative); Ehrlichia muris eauclairensis Negative (Negative)
== END 2023-11-13 03:25 | disposition home or self-care (01) ==
LOC: LBO 03:25
PROVIDERS: PCP Nurse Practitioner; Referring Provider Nurse Practitioner; Visit Provider Nurse Practitioner
DX: R53.83 Other fatigue (principal); M25.50 Pain in unspecified joint
CPT/HCPCS: 36415; 80053; 82306; 86200; 87798; 82607; 82728; 83970; 84439; 84443; 85025; 86038; 86431; 86618

== ENCOUNTER 2023-12-21 00:11 | Outpatient (CLI) | payer OTHER, SELFPAY ==
--- NOTE | 2023-12-21 15:00 | DI.MAMMO_ITS ---
Exam(s) MAMMO SCREENING EXAM: MAMMO SCREENING CLINICAL HISTORY: screening. TECHNIQUE: Bilateral full field digital CC and MLO mammographic images were obtained with 3D tomosyn thesis and utilizing computer aided detection (CAD). COMPARISON: Prior mammograms were reviewed. FINDINGS: There has been no significant change in the appearance and distribution of the fibroglandular tissue. No CAD designations. There are no new spiculated masses nor malignant appearing microcalcification groups. Small benign-appearing lymph node posteriorly in the right breast is unchanged. There is no significant architectural distortion nor skin thickening-retraction. IMPRESSION: No radiographic evidence of malignancy. BI-RADS Category 1 - Negative Breast Density - Category B - Scattered areas of fibroglandular density Breast density Category C or D implies that the patient has dense breast tissue. Dense breast tissue can make it harder to find cancer on a mammogram. Dense breast tissue is also associated with an incr eased risk of breast cancer. This information about the result of the mammogram report was provided to the patient to raise their awareness. Use this report when you speak with the patient about their risks for breast cancer, which includes their family history. At that time, you may recommend additional screening tests (Ultrasoun d or MRI) as these tests may add significant information. A negative radiographic report should not delay biopsy if a dominant or clinically suspicious mass is present. Up to ten percent of cancers are not identified on mammography. A negative report may reinforce clinical impression. Adenosis and dense breasts may obscure an underlying neoplasm. False positive reports average 6 to 10%. Patient will receive a letter notifying them of these results.
== END 2023-12-21 00:31 ==
LOC: DI 00:11
PROVIDERS: PCP Nurse Practitioner; Visit Provider Nurse Practitioner Women's Health
DX: Z12.31 Encounter for screening mammogram for malignant neoplasm of breast (principal)
CPT/HCPCS: 77063; 77067

== ENCOUNTER 2024-06-20 01:00 | Outpatient (CLI) | payer OTHER, SELFPAY ==
--- NOTE | 2024-06-20 15:11 | DI.RAD_ITS ---
Exam(s) XR HAND RT COMPLETE EXAM: XR HAND RT COMPLETE CLINICAL HISTORY: right mid hand pain for six mos, No injury,[id number]. TECHNIQUE: 2D digital imaging was performed. Three views. COMPARISON: No exams were available for comparison FINDINGS: BONES: No acute fracture is present. No bony destructive lesion is seen. JOINTS: No dislocation present. SOFT TISSUE: Normal. IMPRESSION: Unremarkable radiographs of the right hand. DATA REPOSITORY: RADIATION DOSE DELIVERED:
== END 2024-06-20 01:20 ==
LOC: DI 01:00
PROVIDERS: PCP Nurse Practitioner; Visit Provider Nurse Practitioner
DX: M79.641 Pain in right hand (principal)
CPT/HCPCS: 73130

== ENCOUNTER 2024-06-20 16:12 | Outpatient (CLI) | payer OTHER, SELFPAY ==
[2024-06-20 16:22] LABS: TSH (W/Ref FT4) < 0.01 uIU/mL (0.36-3.74)
[2024-06-20 16:54] LABS: FREE T4 1.29 ng/dL (0.76-1.46)
== END 2024-06-20 16:13 | disposition home or self-care (01) ==
LOC: LBO 16:13
PROVIDERS: PCP Nurse Practitioner; Visit Provider Family Medicine
DX: E03.9 Hypothyroidism, unspecified (principal)
CPT/HCPCS: 36415; 84439; 84443

== ENCOUNTER 2024-09-18 01:55 | Outpatient (CLI) | payer OTHER, SELFPAY ==
[2024-09-18 07:36] LABS: Abs Immature Grans 0.01 10^3/uL (0.0-0.06); Absolute Basophil Count 0.04 10^3/uL (0.0-0.2); Absolute Lymphocyte Count 2.58 10^3/uL (1.2-3.4); Absolute Monocyte Count 0.39 10^3/uL (0.1-0.8); Absolute Neutrophil Count 2.17 10^3/uL (1.2-6.7); Basophils % 0.8 %; Eosinophils % 1.9 %; HCT 30.4 % (36.0-46.0); HGB 9.5 g/dL (11.2-15.7); Immature Grans % 0.2 %; Lymphocytes % 48.8 %; MCH 23.8 pg (27.0-33.0); MCHC 31.3 % (32.0-36.0); MCV 76 fL (80-95); MPV 9.2 fL (8.0-11.0); Monocytes % 7.4 %; Neutrophils % 40.9 %; Platelet Count 279 10^3/uL (130-400); RDW 17.2 % (11.7-14.6); RDW-SD 47.4 fL; WBC 5.29 10^3/uL (4.4-10.8)
[2024-09-18 08:27] LABS: FREE T4 0.82 ng/dL (0.76-1.46)
[2024-09-18 08:48] LABS: ALT 37 U/L (14-59); AST 21 U/L (15-37); Albumin 3.6 g/dL (3.4-5.0); Alkaline Phosphatase 27 U/L (46-116); Anion Gap 10.7 mmol/L (3-11); BUN 15 mg/dL (7-18); Bilirubin, Total 0.4 mg/dL (0.2-1.0); CO2 26.3 mmol/L (21.0-32.0); Calcium 8.8 mg/dL (8.5-10.1); Calculated LDL 148 mg/dL (<100); Chloride 104 mmol/L (98-107); Cholesterol 216 mg/dL (<200); Estimated GFR 71.24 (mL/min/1.73m2); Ferritin 4 ng/mL (8-252); Glucose 93 mg/dL (74-106); HDL Cholesterol 57 mg/dL (>or=50); Sodium 141 mmol/L (136-145); TSH 5.98 uIU/mL (0.36-3.74); Total Protein 6.5 g/dL (6.4-8.2); Triglyceride 57 mg/dL (<150); Vitamin B12 313 pg/mL (193-986); Vitamin D 25 Total 36 ng/mL (30-100)
[2024-09-18 08:51] LABS: Total Iron Binding Capacity 458 ug/dL (250-450)
== END 2024-09-18 01:56 | disposition home or self-care (01) ==
LOC: LBO 01:56
PROVIDERS: Absent Provider Nurse Practitioner; PCP Nurse Practitioner; Referring Provider Nurse Practitioner; Visit Provider Nurse Practitioner
DX: E78.5 Hyperlipidemia, unspecified (principal)
CPT/HCPCS: 36415; 80053; 80061; 82306; 82607; 82728; 83550; 84439; 84443; 85025

== ENCOUNTER 2024-12-03 08:46 | Outpatient (REF) | payer OTHER, SELFPAY ==
--- NOTE | 2024-12-03 08:30 | PAPFT_PTH ---
PATIENT: Amelia Antunez LOC: [facility] U#:[id number] AGE/SX: 44/F ROOM: RE12/03/[address]: Lyndsay Millard NP : 1980 BED: DIS: 12/03/2024 SPEC #: [id number] RECD: 12/03/24 12:48 STATUS: ASHLEY SANCHEZ #: [id number] [place]: 12/03/24 08:[address]: Lyndsay Millard NP DEPT: [facility] Cytology RECD BY: Valeria Mancia ENTERED: 12/03/24 12:49 SP TYPE: PAPFT OTHR DR: Helena Benítez APRN Tissues: 1 - CX/ENDOCX FOR PAP SMEARS Procedures: PAP THIN PREP/UVM Screening HPV DNA PROBE Comments: [id number] (HPV 16 & 18/45)
== END 2024-12-03 08:47 | disposition home or self-care (01) ==
LOC: LBN 08:46
PROVIDERS: PCP Nurse Practitioner; Visit Provider Nurse Practitioner Women's Health
DX: Z12.4 Encounter for screening for malignant neoplasm of cervix (principal)
CPT/HCPCS: 88142; 87624

== ENCOUNTER 2024-12-22 12:18 | Outpatient (CLI) | payer OTHER, SELFPAY ==
[2024-12-22 16:28] LABS: Abs Immature Grans 0.02 10^3/uL (0.0-0.06); HCT 30.9 % (36.0-46.0); HGB 9.6 g/dL (11.2-15.7); Immature Grans % 0.3 %; MCH 24.0 pg (27.0-33.0); MCHC 31.1 % (32.0-36.0); MCV 77 fL (80-95); MPV 9.0 fL (8.0-11.0); Platelet Count 285 10^3/uL (130-400); RBC 4.00 10^6/uL (3.93-5.22); RDW 15.4 % (11.7-14.6); RDW-SD 42.5 fL; WBC 7.07 10^3/uL (4.4-10.8)
[2024-12-22 17:40] LABS: Iron 20 ug/dL (50-170); Total Iron Binding Capacity 512 ug/dL (250-450); Transferrin Sat 4 % (15-50)
[2024-12-22 17:56] LABS: ALT 40 U/L (14-59); AST 16 U/L (15-37); Albumin 3.9 g/dL (3.4-5.0); Alkaline Phosphatase 21 U/L (46-116); Anion Gap 10.6 mmol/L (3-11); BUN 24 mg/dL (7-18); Bilirubin, Total 0.3 mg/dL (0.2-1.0); CO2 24.4 mmol/L (21.0-32.0); Calcium 9.1 mg/dL (8.5-10.1); Chloride 103 mmol/L (98-107); Estimated GFR 80.84 (mL/min/1.73m2); Ferritin 5 ng/mL (8-252); Folate 13.5 ng/mL (8.6-20.0); Glucose 88 mg/dL (74-106); Potassium 4.4 mmol/L (3.5-5.1); Sodium 138 mmol/L (136-145); TSH 1.11 uIU/mL (0.36-3.74); Total Protein 7.1 g/dL (6.4-8.2); Vitamin B12 215 pg/mL (193-986); Vitamin D 25 Total 33 ng/mL (30-100)
[2024-12-22 19:11] LABS: Hemoglobin A1C 5.7 % (<5.7)
== END 2024-12-22 12:19 | disposition home or self-care (01) ==
LOC: LBO 12:19
PROVIDERS: PCP Nurse Practitioner; Visit Provider Registered Nurse
DX: F33.2 Major depressive disorder, recurrent severe without psychotic features (principal); F41.1 Generalized anxiety disorder; F10.10 Alcohol abuse, uncomplicated; Z51.81 Encounter for therapeutic drug level monitoring
CPT/HCPCS: 36415; 80053; 82306; 82607; 82728; 82746; 83036; 83540; 83550; 84439; 84443; 85025

== ENCOUNTER 2025-01-09 00:33 | Outpatient (CLI) | payer OTHER, SELFPAY ==
--- NOTE | 2025-01-09 15:00 | DI.MAMMO_ITS ---
Exam(s) MAMMO SCREENING EXAM: MAMMO SCREENING CLINICAL HISTORY: screening. TECHNIQUE: Bilateral full field digital CC and MLO mammographic images were obtained with 3D tomosynthesis and utilizing computer aided detection (CAD). COMPARISON: Prior mammograms were reviewed. FINDINGS: There has been no significant change in the appearance and distribution of the fibroglandular tissue. Small benign-appearing lymph node posteriorly in the right breast unchanged from prior mammograms. There are no new spiculated masses nor new malignant appearing microcalcification groups. There is no significant architectural distortion nor skin thickening-retraction. IMPRESSION: No radiographic evidence of malignancy. BI-RADS Category 1 - Negative Breast Density - Category B - There are scattered areas of fibroglandular density. Breast density Category C or D implies that the patient has dense breast tissue. Dense breast tissue can make it harder to find cancer on a mammogram. Dense breast tissue is also associated with an increased risk of breast cancer. This information about the result of the mammogram report was provided to the patient to raise their awareness. Use this report when you speak with the patient about their risks for breast cancer, which includes their family history. At that time, you may recommend additional screening tests (Ultrasound or MRI) as these tests may add significant information. A negative radiographic report should not delay biopsy if a dominant or clinically suspicious mass is present. Up to ten percent of cancers are not identified on mammography. A negative report may reinforce clinical impression. Adenosis and dense breasts may obscure an underlying neoplasm. False positive reports average 6 to 10%. Patient will receive a letter notifying them of these results.
== END 2025-01-09 00:53 ==
LOC: DI 00:33
PROVIDERS: PCP Nurse Practitioner; Visit Provider Nurse Practitioner Women's Health
DX: Z12.31 Encounter for screening mammogram for malignant neoplasm of breast (principal); R92.323 Mammographic fibroglandular density, bilateral breasts
CPT/HCPCS: 77063; 77067

== ENCOUNTER 2025-01-20 20:43 | Emergency (ER) | payer OTHER, SELFPAY ==
[2025-01-20] VITALS (57 sets, daily range): BP systolic 94–117; BP diastolic 53–73; PULSE 51–75; RESP 10–23; TEMP 37.4; O2SAT 96–100
--- NOTE | 2025-01-20 20:30 | RT.EKG_ITS ---
APPROVED REPORT Exam: Resting ECG Reason for Exam: OD Patient Location: E HR:69 bpm ECG Measurements Heart Rate 69 AXIS IL 142 P 45 QRSd 82 QRS 1 QT 412 T 30 QTc 440 Conclusion Sinus rhythm...normal P axis, V-rate 60- 99 Low voltage, precordial leads...precordial leads <1.0mV Normal Electrocardiogram
--- NOTE | 2025-01-20 20:38 | ED.GENADUL_ITS ---
Discharge Plan Discharge Details Chief Complaint: OD/Poison Primary Care Provider: Helena Benítez ED Provider: Hung Duffy [place] Meds and New Rx's Prescriptions: No Action Mirena 20 mcg/24 hours (6 yrs) 52 mg intrauterine device 1 device intrauterine ONCE Rx Instructions: as a single dose magnesium 200 mg tablet 400 mg PO DAILY lamotrigine 25 mg tablet 100 mg PO DAILY Patient Comments: RX'd by [facility]. Aimovig Autoinjector 140 mg/mL auto-injector 140 mg subcut QMONTH Qty: 1 11RF propranolol 10 mg tablet 10 mg PO BID PRN fluoxetine 10 mg capsule 10 mg PO DAILY Emgality Pen 120 mg/mL pen injector 240 mg subcut ONCE Qty: 2 0RF Rx Instructions: as a single dose; administer as two 120 mg injections at separate sites Nurtec ODT 75 mg tablet,disintegrating 75 mg PO ONCE PRN (Reason: migraine headache) Qty: 16 3RF Rx Instructions: As a single dose. No more than one dose in 24 hours. valacyclovir [Valtrex] 500 mg tablet See Rx Instructions PO .COMPLEX Patient Comments: take 2 gms and repeat 2 gms in 12 hrs for flare, take 500 mg daily for prophylaxis Pedro Luis Alvarez MD [facility] Rx Instructions: take 2 gms and repeat 2 gms in 12 hrs for flare, take 500 mg daily for prophylaxis Pedro Luis Alvarez MD [facility] iron, carbonyl [Iron Chews] PO DAILY vitamin B complex [B Complex-Vitamin B12] Tablet 1 tab PO DAILY multivitamin Tablet 2 tab PO DAILY calcium [calcium citrate] PO BID levothyroxine 150 mcg capsule 150 mcg PO DAILY Qty: 30 3RF cyclobenzaprine 10 mg tablet 10 mg PO TID PRN (Reason: muscle spasm) Qty: 60 0RF escitalopram oxalate 20 mg tablet 5 mg PO DAILY Patient Comments: 01/25/24, updated on 11/28/24.HE diclofenac sodium 3 % gel 1 applic topical BID PRN (Reason: pain) Qty: 100 1RF hydroxyzine pamoate 25 mg capsule 25 mg PO DAILY PRN Rx Instructions: prn for anxiety clotrimazole-betamethasone 1-0.05 % cream 1 applic topical BID PRN (Reason: vaginal itch) eszopiclone [Lunesta] 2 mg tablet 2 mg PO QHS Rx Instructions: 3mg total qhs eszopiclone [Lunesta] 1 mg tablet 1 mg PO QHS Rx Instructions: 3mg total qhs HPI General Mode of arrival: EMS . Date/Time Provider Initiated Documentation: 01/20/25 20:50 . Limitations to Documentation: no limitations . Information obtained by: patient, EMS and RN notes reviewed . HPI Narrative: Patient presents to ED by ambulance after intentional overdose approximately 30 minutes prior to arrival. Patient has been having problems with depression. She has been in contact with his therapist and was actually texting her therapist at the time she took 12 of her 's topiramate. When came to check on her and ultimately ended up calling EMS. Patient denies ingestion of any other medication, alcohol or drugs. Complains of nausea and feeling dizzy. States she was not really trying to kill herself but wanted to go to sleep and never wake up. Related Data Home Medications ?Medication ?Instructions ?Recorded ?Confirmed valacyclovir 500 mg tablet See Rx Instructions PO .COM PLEX 04/15/18 01/20/25 (Valtrex) levonorgestrel (Mirena) 1 device intrauterine ONCE 1 07/06/19 01/20/25 calcium [calcium citrate] PO BID 03/19/23 12/31/24 Held on 01/20/25. Instructions: Pt Stopped/Never Started iron, carbonyl [Iron Chews] PO DAILY 03/19/23 12/31/24 Held on 01/20/25. Instructions: Pt Stopped/Never Started multivitamin 2 tab PO DAILY 03/19/2302/05 vitamin B complex (B 1 tab PO DAILY 03/19/2312/13 Complex-Vitamin B12 tablet) diclofenac sodium 3 % topical gel 1 applic topical BID PRN pain #100 06/18/23 01/20/25 grams cyclobenzaprine 10 mg tablet 10 mg PO TID PRN muscle s pasm #60 07/07/24 01/20/25 tabs levothyroxine 150 mcg capsule 150 mcg PO DAILY #30 cap s 07/07/24 01/20/25 erenumab-aooe 140 mg/mL 140 mg subcut QMONTH #1 mL 0 09/03/24 01/20/25 subcutaneous auto-injector (Aimovig Autoinjector) Held on 01/20/25. Instructions: Pt Stopped/Never Started magnesium 200 mg tablet 400 mg PO DAILY 09/09/2402/05 escitalopram oxalate 20 mg tablet 5 mg PO DAILY 01/20/25 Held on 01/20/25. Instructions: Pt Stopped/Never Started propranolol 10 mg tablet 10 mg PO BID PRN 11/28/24 Held on 01/20/25. Instructions: Prescription Finished fluoxetine 10 mg capsule 10 mg PO DAILY 12/31/2402/05 galcanezumab-gnlm 120 mg/mL 240 mg (2 mL) subcut ONCE #2 mL 12/31/24 01/20/25 subcutaneous pen injector (Emgality Pen) lamotrigine 25 mg tablet 100 mg PO DAILY 12/31/2402/05 rimegepant 75 mg disintegrating 75 mg PO ONCE PRN migr josy 12/31/24 01/20/25 tablet (Nurtec ODT) headache #16 tabs clotrimazole-betamethasone 1 1 applic topical BID PRN vaginal 01/20/25 01/20/25 %-0.05 % topical cream itch eszopiclone 1 mg tablet (Lunesta) 1 mg PO QHS 01/20/25 01/20/25 eszopiclone 2 mg tablet (Lunesta) 2 mg PO QHS 01/20/25 01/20/25 hydroxyzine pamoate 25 mg capsule 25 mg PO DAILY PRN 0 01/20/25 01/20/25 Previous Rx's ?Medication ?Instructions ?Recorded diclofenac sodium 3 % topical gel 1 applic topical BID PRN pain #100 06/18/23 grams cyclobenzaprine 10 mg tablet 10 mg PO TID PRN muscle s pasm #60 07/07/24 tabs levothyroxine 150 mcg capsule 150 mcg PO DAILY #30 cap s 07/07/24 erenumab-aooe 140 mg/mL 140 mg subcut QMONTH #1 mL 0 09/03/24 subcutaneous auto-injector (Aimovig Autoinjector) Held on 01/20/25. Instructions: Pt Stopped/Never Started galcanezumab-gnlm 120 mg/mL 240 mg (2 mL) subcut ONCE #2 mL 12/31/24 subcutaneous pen injector (Emgality Pen) rimegepant 75 mg disintegrating 75 mg PO ONCE PRN migr josy 12/31/24 tablet (Nurtec ODT) headache #16 tabs Allergies Allergy/AdvReac Type Severity Reaction Status Date / Time clindamycin Allergy Severe Body rash, Verified 01/20/25 20:47 intensence itching sumatriptan (From Imitrex) AdvReac Severe Psychosis Verified 01/20/25 20:47 codeine AdvReac Intermediate GI Verified 01/20/25 20:47 pain/distress NSAIDS (Non-Steroidal AdvReac Contraindic Verified 01/20/25 20:47 Anti-Inflamma ated General TOBI: 4 Exam Narrative Exam Narrative: Const: WDWN female in NAD. VS per triage. HEENT: NC/AT. Normal facial exam. Neck: Supple. Trachea midline. Lungs: Normal respiratory effort. Lungs are clear. Cor: RRR without murmur. Good radial pulses. GI: Soft/ND/NT. Neuro: A+O x 3. Normal speech, mentation. Cranial nerves II - XII grossly intact. No gross motor or sensory deficit. Ext: No C/C/E. Psych: Admits to depression and intentionally taking medications but denies SI. Medical Decision Making Patient presenting to ED from home with intentional drug overdose. Patient took 600 mg of topiramate. Told she wanted to go to sleep and never wake up but tells me when questioned directly with this she was trying to harm herself that she did not want to kill herself. Ingestion was approximately 30 minutes prior to arrival. is the one that activated EMS. Poison control called in shortly after I evaluated patient, as they had been by 911 dispatch. Patient's mental iris is currently normal. Her EKG is sinus rhythm with normal interval and axis and no acute changes. IV established here. Laboratory studies sent. Will plan acetaminophen level at 11 PM which is 4 hours after reported ingestion. Poison control recommends cardiac monitoring for 6 hours. She will need mental health eval once medically cleared. Laboratory studies are unremarkable. She has a stable hemoglobin. Chemistries, liver function are normal. Aspirin, Tylenol, alcohol all negative. Repeat Tylenol pending. Patient be signed out to oncoming ED physician, Dr. Friedman pending medical clearance and mental health evaluation. Lab Data Lab results reviewed: Yes I reviewed the patient's lab results. Lab results narrative: see [facility] ECG Data Attestation: I personally reviewed and interpreted this ECG (s) as follows: Interpretation: see MDM/EKG Critical Care Time Critical Care Time Critical Care Time: Yes Total Critical Care Time: 45 Attestation: Upon my evaluation, this patient had a high probability of imminent or life- threatening deterioration, which required my direct attention, intervention, and personal management. I have personally provided 45 minutes of critical care time exclusive of time spent on separately billable procedures. Time includes monitoring for potential decompensation, ordering of tests and medications, review of laboratory and radiology results, discussion with consultants and documentation . Interventions were performed as documented above in procedures. FORMERLY [facility], [facility]–1983 All Active Problems Chronic neck pain (Acute) Insomnia (Acute) Chronic daily headache (Acute) Migraine headache (Chronic) Oral facial dystonia (Acute) Conjunctivitis (Acute) IUD surveillance (Acute ~02/2018) Gastro-esophageal reflux disease with esophagitis, without bleeding (Acute) 12/14/22 GI 01/11/23 F/U GI Internal hemorrhoids (Acute) Abdominal migraine, not intractable (Acute) Chronic tension-type headache, not intractable (Acute) Actinic keratitis (Acute) Lentigines (Acute) Generalized anxiety disorder (Acute) Shoulder pain, right (Acute) BCC (basal cell carcinoma), chest (Acute 05/19/20) left midline Tensor tympani spasm disorder, left (Acute) Heartburn (Acute ~08/2022) 08/16/22 GI -esophageal manometry procedure done. 09/05/22 f/u GI GI bleed (Chronic) per task -- will see JV 6/7 Anemia (Chronic) per task -- will see JV 6/7 Medical History TMJ (temporomandibular joint disorder) Multiple melanocytic nevi ERNESTO (stress urinary incontinence, female) Fibroid, uterine 3cm fundal fibroid incidental finding on exam September 2022 History of squamous cell carcinoma [facility] progress note 08/29/21 On lip 06/11/24 Derm f/u Dyspepsia 08/24/21 [facility] Gastro note 10/26/21 [facility] UGI Hyperlipidemia Esophageal erosions by EGD 07/19/18 [facility] [facility] HSV (herpes simplex virus) infection Hypothyroidism Surgical History S/P repair of paraesophageal hernia Done at [facility] 02/20/2023 Status post gastroplasty Done at [facility]23 History of repair of hiatal hernia (~02/2023) History of Shefali-en-Y gastric bypass (~02/19/23) History of esophagogastroduodenoscopy (EGD) (~01/05/23) 01/05/23- pre-op dx: gerd s/p sleeve gastrectomy. procedure: EGD, with dilation gastric/duodenal strictures H/O colonoscopy (~2010) H/O endoscopy (~10/26/22) Status post laparoscopic sleeve gastrectomy (~2014) 2014 in [place] Was followed by PA at [facility] 01/11/23 F/U GI -evidence non-obstructing stricture of her sleeve History of tonsillectomy Cholecystectomy Family History Mother Essential hypertension Asthma COPD Depression COPD (chronic obstructive pulmonary disease) Anxiety Alcohol abuse Father Essential hypertension Social History Smoking/Tobacco Use Status: Never Second Hand Exposure: No Smoking risk assessment performed?: Yes Alcohol Intake: former Drug use: Never Substance use type: does not use Adopted: No Caregiver/Support person: No Foster care: No Household members: spouse and children Housing: house Number of Children: 3 number of grandchildren: 0 Communication Needs: None Education Level: college Do you need help understanding health information?: Never current occupation: [employer] Pets and animals: Yes Pets and animals: cat(s) and dog(s) Sexually active: Yes Do you think of yourself as: straight/heterosexual Current gender identity: female What is your relationship status?: How often do you talk on the phone with friends or family?: once per week How often do you get together with friends or relatives?: once per week Do you belong to any clubs or organized social groups?: no Panel score (0-1 are the most socially isolated patients): 1 What type of physical activity do you participate in: none Special romeo needs: No Seatbelt use: always Helmet use: Yes (NA) Drive intox or ride w/intox dedicated driver: No Water heater temp set <120 deg: Yes Working smoke detector in home: Yes Fire extinguisher in home: Yes Carbon monox detector in home: No Do you feel safe at home: Yes Do you feel safe in your relationship?: Yes Female Reproductive History Menstrual Age of Menarche: 16 Duration of menses: 3-5 days control method: progestin IUCD and condoms History History 3 Para 3 Hx # Term Pregnancies Multiple births Hx # Pregnancies Ectopic pregnancies AB induced Hx Number of Living Children AB spontaneous Past Pregnancies Del. Date GA/Weeks # Preg Succ Route Wgt Sex Labor Lgth Anesth esia Location Prov Complic 10/08/04 40 Yes vaginal 4337.477 g Female Alden srivastava [place], [place] 01/18/07 40 Yes vaginal 4280.778 g Male Karishma mccollum [place], [place] 02/15/12 34 Yes vaginal 2409.709 g Male [facility]
[2025-01-20] MEDS: Ondansetron 4 MG/2 ML VIAL IVP (21:08)
[2025-01-20 21:10] LABS: Abs Immature Grans 0.01 10^3/uL (0.0-0.06); HCT 30.5 % (36.0-46.0); HGB 9.5 g/dL (11.2-15.7); Immature Grans % 0.1 %; MCH 23.2 pg (27.0-33.0); MCHC 31.1 % (32.0-36.0); MCV 75 fL (80-95); MPV 9.7 fL (8.0-11.0); Platelet Count 262 10^3/uL (130-400); RBC 4.09 10^6/uL (3.93-5.22); RDW 16.3 % (11.7-14.6); RDW-SD 44.1 fL; WBC 7.02 10^3/uL (4.4-10.8)
[2025-01-20] MEDS: Normal Saline 1,000 ML 1000 ML IV (21:13)
[2025-01-20 21:26] LABS: Anisocytosis 1+; Microcytosis 1+; Poikilocytes 1+
[2025-01-20 21:27] LABS: Salicylate < 2.8 mg/dL (<2.8)
[2025-01-20 21:28] LABS: ALT 42 U/L (14-59); AST 26 U/L (15-37); Albumin 3.9 g/dL (3.4-5.0); Alkaline Phosphatase 23 U/L (46-116); Anion Gap 12.0 mmol/L (3-11); BUN 13 mg/dL (7-18); Bilirubin, Total 0.2 mg/dL (0.2-1.0); CO2 23.0 mmol/L (21.0-32.0); Calcium 9.1 mg/dL (8.5-10.1); Chloride 106 mmol/L (98-107); Estimated GFR 71.24 (mL/min/1.73m2); Glucose 87 mg/dL (74-106); Potassium 3.7 mmol/L (3.5-5.1); Sodium 141 mmol/L (136-145); Total Protein 6.9 g/dL (6.4-8.2)
[2025-01-20 21:30] LABS: HCG Qual (Serum) Negative
[2025-01-20 21:32] LABS: Acetaminophen < 2 ug/mL (10-30)
[2025-01-20 22:58] LABS: Cannabinoids THC Negative (Negative); METHADONE URINE SCREEN Negative (Negative)
[2025-01-20 23:37] LABS: Acetaminophen < 2 ug/mL (10-30)
[2025-01-21] VITALS (89 sets, daily range): BP systolic 87–99; BP diastolic 44–60; PULSE 44–72; RESP 11–20; O2SAT 96–100
--- NOTE | 2025-01-21 04:16 | ED.PROG_ITS ---
Date of service: 01/21/25 Time of Service: 04:16 Medical Decision Making Patient was signed out to me by my colleague Dr. Duffy. Please review his HPI, physical exam, assessment and plan. At time of signout we are awaiting for 6- hour medical clearance. At the 6-hour bernardo patient was doing well, she regretted her decision, vital signs are stable. She was sleeping and resting well. She was awoken and evaluated by mental health professional. After their assessment they feel that the patient is safe to go home with the agreed-upon safety plan and the helping care of her . Patient feels comfortable with this plan. Patient remains medically cleared. Laboratory workup is otherwise reassuring. Patient will be discharged home with close follow-up with her mental health advocates. Discussed red flags which to return. I have extensively reviewed the treatment plan and discharge instructions with the patient. I have addressed all patient concerns at this time. The patient was made aware of what symptoms to monitor for that would warrant a return to the emergency department. Discussed the plan with the patient, they demonstrate verbal understanding and agreement with our assessment and plan at this time. The documentation in this chart was dictated using [employer] dictation software. Please excuse any dictation errors. Discharge Plan Disposition Patient Disposition: Home Condition: Good Discharge Details Clinical Impression: Depression, Medication overdose Primary Care Provider: Helena Benítez ED Provider: Francesco Friedman Home Meds and New Rx's Prescriptions: No Action Mirena 20 mcg/24 hours (6 yrs) 52 mg intrauterine device 1 device intrauterine ONCE Rx Instructions: as a single dose magnesium 200 mg tablet 400 mg PO DAILY lamotrigine 25 mg tablet 100 mg PO DAILY Patient Comments: RX'd by [facility]. Aimovig Autoinjector 140 mg/mL auto-injector 140 mg subcut QMONTH Qty: 1 11RF propranolol 10 mg tablet 10 mg PO BID PRN fluoxetine 10 mg capsule 10 mg PO DAILY Emgality Pen 120 mg/mL pen injector 240 mg subcut ONCE Qty: 2 0RF Rx Instructions: as a single dose; administer as two 120 mg injections at separate sites Nurtec ODT 75 mg tablet,disintegrating 75 mg PO ONCE PRN (Reason: migraine headache) Qty: 16 3RF Rx Instructions: As a single dose. No more than one dose in 24 hours. valacyclovir [Valtrex] 500 mg tablet See Rx Instructions PO .COMPLEX Patient Comments: take 2 gms and repeat 2 gms in 12 hrs for flare, take 500 mg daily for prophylaxis Pedro Luis Alvarez MD [facility] Rx Instructions: take 2 gms and repeat 2 gms in 12 hrs for flare, take 500 mg daily for prophylaxis Pedro Luis Alvarez MD [facility] iron, carbonyl [Iron Chews] PO DAILY vitamin B complex [B Complex-Vitamin B12] Tablet 1 tab PO DAILY multivitamin Tablet 2 tab PO DAILY calcium [calcium citrate] PO BID levothyroxine 150 mcg capsule 150 mcg PO DAILY Qty: 30 3RF cyclobenzaprine 10 mg tablet 10 mg PO TID PRN (Reason: muscle spasm) Qty: 60 0RF escitalopram oxalate 20 mg tablet 5 mg PO DAILY Patient Comments: 01/25/24, updated on 11/28/24.HE diclofenac sodium 3 % gel 1 applic topical BID PRN (Reason: pain) Qty: 100 1RF hydroxyzine pamoate 25 mg capsule 25 mg PO DAILY PRN Rx Instructions: prn for anxiety clotrimazole-betamethasone 1-0.05 % cream 1 applic topical BID PRN (Reason: vaginal itch) eszopiclone [Lunesta] 2 mg tablet 2 mg PO QHS Rx Instructions: 3mg total qhs eszopiclone [Lunesta] 1 mg tablet 1 mg PO QHS Rx Instructions: 3mg total qhs Discharge Instructions Instructions: Depression, Adult ED Additional Instructions: At this time you have demonstrated medical stability. Please abide by the safety plan which has been put forth for you. Please follow-up closely with your mental health advocates. If you notice any worsening of your symptoms, or any new symptoms such as vomiting, diarrhea, fever, chills, shortness of breath, chest pain, numbness, weakness, or fainting , please return immediately to the emergency department for reevaluation. Please follow up with your primary care provider as soon as possible for reassessment and reevaluation. As always, it was a pleasure participating in your medical care today. Referrals: Helena Benítez NP [Primary Care Provider, Medicine]
--- NOTE | 2025-01-21 04:25 | PDOC.MHCN_ITS ---
Date of service: 01/21/25 Time of Service: 03:43 Suicide Severity Rate CSSRS Have you wished you were or wished you could go to sleep and not wake up?: Yes Have you actually had any thoughts of killing yourself?: No CSSRS2 Have you been thinking about how you might do this?: No Have you had these thoughts and had some intention of acting on them?: No Have you started to work out or worked out the details of how to kill yourself? Do you intend to carry out this plan?: No CSSRS3 Have you ever done anything, started to do anything or prepared to do anything to end your life?: No CSSRS4 Was this within the past three months?: No Screening Score Total Score: 2 Screening: Positive Mental Health Emergency Note Release [facility] release signed:: No Reason for Visit overdose on sleeping medication In the last 2 weeks has the pt presented for ES prior to today?: Unknown Client Information Client is: New Well Housed: Yes Non Suicidal Self Injury Current: No History: No Safety Risk/Harm to Self or Others Current Ideation to Harm Self or Others: No Risk: Does risk to harm exist?: No Risk: Low Risk Duty to warn indicated: No Asssessment/Mental Status Appearance: Unremarkable Attitude: Cooperative Behavior: Unremarkable Speech: Normal Affect: Normal Mood: Sad Thought process: Unremarkable Hallucinations: No Delusions: No Attention: Unremarkable Perception: Not impaired Orientation: Fully orientated Memory: Intact Insight: Good Judgement: Good Neurovegetative Symptoms Sleep: No change Appetitie: No change Interests: No change Energy: No change Libido: Not applicable Substance Use: Do you use nicotine?: No Have you used substances in the last 7 days?: No Additional Issues: Assaultive/Threatening Behavior: No Medical Concerns: No Client engaged in active self harm w/weapon: No Threatening to run away: No Child reported abuse/neglect: No Voluntarily presenting for services: Yes Domestic violence is a concern: No Extreme Psychosis or extreme behavior is present: No Resources Reosurces reviewed and given:: 988, Community therapist and [facility] Plan/Disposition Recommended Disposition: [facility] Services [facility] Services: Other ([facility]). Plan: Client will return home, client will check in with [facility] daily over the next few days to let us know how she is doing and if there are further supports we can offer. Person reported agreement to plan: Yes Reports/communication Outcome discussed with: ED/Personnel Final Disposition/Discharge Transportation Checklist completed and faxed: No
--- NOTE | 2025-01-21 09:29 | NUR.NOTE ---
Accessed Pt chart to advise the [employer] she was here, discharged with a safety plan and advised to check in with mental health worker.
== END 2025-01-21 05:05 | disposition home or self-care (01) ==
PROVIDERS: Emergency Medicine; Emergency Provider Student in an Organized Health Care Education/Training Program; PCP Nurse Practitioner
DX: F32.A Depression, unspecified; T50.992A Poisoning by other drugs, medicaments and biological substances, intentional self-harm, initial encounter
CPT/HCPCS: 00123; 36415; 80053; 80307; 93005; 96361; 96374; 99291; 80320; 80329; 84703; 85025; 93010; J2405

== ENCOUNTER 2025-03-11 02:24 | Outpatient (RCR) | payer OTHER, SELFPAY ==
[2025-02-25] MEDS: IRON SUCROSE COMPLEX 200 MG in Normal Saline 100 ML 440 MG IVPB (11:45)
[2025-02-25] MEDS: Normal Saline Flush 10 ML SYR IVP (11:45)
[2025-03-04] MEDS: IRON SUCROSE COMPLEX 200 MG in Normal Saline 100 ML 440 MG IVPB (12:37)
[2025-03-04] MEDS: Normal Saline Flush 10 ML SYR IVP (12:38)
[2025-03-11] MEDS: Normal Saline Flush 10 ML SYR IVP (11:55)
[2025-03-11] MEDS: IRON SUCROSE COMPLEX 200 MG in Normal Saline 100 ML 440 MG IVPB (11:59)
== END 2025-03-13 23:59 | disposition home or self-care (01) ==
LOC: INF 02:24
DX: D50.9 Iron deficiency anemia, unspecified (principal)
CPT/HCPCS: 96365; J1756